=== PATIENT | female | born 1965 | race Caucasian/White ===

== ENCOUNTER 2017-04-07 10:31 | Inpatient (IN) | payer OTHER ==
[~2017-04-07] VITALS: Ht 162.6 cm; Wt 41.5 kg
[~2017-04-07 10:31] MED LIST: ALPR0.5T3 PO; BUSP5 PO; CALA180T PO; CETI10 PO; DIGO0.25 PO; GEMF600T PO; HYDR0.1S8 PO; LANS30 PO; MONT10TA2 PO; PROM25TA5 PO
[2017-04-07 10:33] VITALS: BP 99/56; PULSE 89; RESP 18; TEMP 98.3; O2SAT 100
--- NOTE | 2017-04-07 11:27 | PD ---
HPI . 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 Apparently last Friday patient says her medications were changed and that she's been feeling lightheaded and dizzy since. reports that he found her on the floor and states she been there for approximately 4-5 hours. She has a bruise to her chin and tells me that she hit her chin, but denies any head injury or loss of consciousness. Patient says that she is extremely weak and lost her balance. Her baseline level of functioning seems to be that requiring assistance to ambulate, but says she is usually able to walk around very slowly holding onto things in her home. She's been having trouble with her balance for the past several months, but has not been able to get into her primary care provider. She does have an upcoming with her primary care provider who practices out of [place] on this . Her main reason for coming to the emergency department is that she is weak, dizzy and can't really walk without total assistance. She does report having a dry cough, but blames it on postnasal drip. She denies any fever or chills. She has no other complaints. PFSH Past Medical History Cancer: No Cardiovascular Problems: Yes (ELEVATED HEARTRATE) Endocrine: No Genitourinary: No Hepatitis: No Hiatal Hernia: Yes Immune Disorder: No Musculoskeletal: Yes (ARTHRITIS LUMBAR) Neurologic: No Psychiatric: Yes (PANIC ATTACKS) Reproductive: No Respiratory: Yes (ASTHMA,COPD) ?: Not Past Surgical History Abdominal Surgery: No Body Medical Devices: NONE Cardiac Surgery: No Ear Surgery: No Endocrine Surgery: No Eye Surgery: No Genitourinary Surgery: No Gynecologic Surgery: Yes (LAPROSCOPIC SURGERY FOR ENDOMETRIOSIS X3) Oral Surgery: Yes (TONSILLECTOMY) Thoracic Surgery: No Social History Tobacco Use: Yes Substance Use: No Allergies-Medications (Allergen,Severity, Reaction): Coded Allergies: Adhesives (Verified Allergy, Unknown, PAPER TAPE OK TO USE, 02/06/16) Carisoprodol (Verified Adverse Reaction, Severe, ACID REFLUX, 02/06/16) HMG-CoA Reductase Inhibitors (Verified Adverse Reaction, Severe, MUSCLE WEAKNESS, 02/06/16) Medrol (Verified Adverse Reaction, Severe, GERD, 02/06/16) Paxil (Verified Adverse Reaction, Severe, 02/06/16) Prilosec (Verified Adverse Reaction, Severe, CHEST PAIN, 02/06/16) Hydrochlorothiazide (Verified Adverse Reaction, Unknown, HEART ISSUES, ) Losartan (Verified Adverse Reaction, Unknown, HEART PROBLEMS, 02/06/16) Triamterene (Verified Adverse Reaction, Unknown, UNKNOWN, 02/06/16) Reported Meds & Prescriptions Reported Meds & Active Scripts Active Reported Zyrtec (Cetirizine HCl) 10 Mg Capsule Buspirone (Buspirone HCl) 5 Mg Tab 5 Mg PO BID Alprazolam 0.5 Mg Tab 0.5 Mg PO Q6H PRN Review of Systems General / Constitutional: No: Fever Eyes: No: Visual changes HENT: No: Headaches Cardiovascular: No: Chest Pain or Discomfort Respiratory: No: Shortness of Breath Gastrointestinal: No: Abdominal Pain Genitourinary: No: Dysuria Musculoskeletal: No: Pain Skin: No Rash Neurologic: Positive: Weakness, Dizziness, Ataxia Psychiatric: No: Depression Endocrine: No: Polydipsia Hematologic/Lymphatic: No: Easy Bruising Physical Exam Narrative GENERAL: AAO x 3, lethargic SKIN: Warm and dry. ecchymosis to nose (Clearing) and chin HEAD: Normocephalic and atraumatic. EYES: No scleral icterus. No injection or drainage. EOM intact, PERRLA ENT: No nasal drainage noted. Mucous membranes pink. Airway patent. TM normal b/ l NECK: Supple, trachea midline. No JVD. no lymphadenopathy, nontender CARDIOVASCULAR: Regular rate and rhythm without murmurs, gallops, or rubs. RESPIRATORY: diminished bilaterally, no rhonchi or wheezing, GASTROINTESTINAL: Abdomen soft, non-tender, nondistended. no rebound or guarding EXTREMITIES: No cyanosis or edema. posterior tibial pulses normal BACK: No obvious deformity. No CVA tenderness. 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, UE and LE 5/5, no focal deficits, but patient visibly weak on exam PSYCH: AAO x 3, flat affect Data Data Last Documented VS Vital Signs Date Time Temp Pulse Resp B/P Pulse Ox O2 Delivery O2 Flow Rate FiO2 04/07/17 13:48 76 16 125/74 100 Room Air 04/07/17 10:33 98.3 Orders Complete Blood Count With Diff (04/07/17 11:36) Comprehensive Metabolic Panel (04/07/17 11:36) Prothrombin Time / Inr (Pt) (04/07/17 11:36) Act Partial Throm Time (Ptt) (04/07/17 11:36) Ct Brain W/O Iv Contrast(Rout) (04/07/17 11:36) Ecg Monitoring (04/07/17 11:36) Iv Access Insert/Monitor (04/07/17 11:36) Oximetry (04/07/17 11:36) Sodium Chloride 0.9% Flush (Ns Flush) (04/07/17 11:45) Urinalysis - C+S If Indicated (04/07/17 11:36) Chest, Single Ap (04/07/17 ) Electrocardiogram (04/07/17 ) Cath For Specimen (04/07/17 12:50) Drug Screen, Random Urine (04/07/17 12:50) Sodium Chlor 0.9% 1000 Ml Inj (Ns 1000 M (04/07/17 13:15) Potassium Chloride (Kcl) (04/07/17 13:15) Sodium, Random Urine (04/07/17 14:58) Osmolality, Urine (04/07/17 14:58) Specimen To Be Collected PRN (04/07/17 14:58) Osmolality,Serum (04/07/17 14:58) Chloride, Random Urine (04/07/17 14:58) Admit To Inpatient (04/07/17 ) Code Status (04/07/17 14:59) Vital Signs (Adult) Q4H (04/07/17 14:59) Activity Oob With Assistance (04/07/17 14:59) Oil Rig Driller / Telemetry .CONTINUOUS (04/07/17 14:59) Diet Regular Basic (04/07/17 Dinner) Sodium Chloride 0.9% Flush (Ns Flush) (04/07/17 15:00) Sodium Chloride 0.9% Flush (Ns Flush) (04/07/17 21:00) Acetaminophen (Tylenol) (04/07/17 15:00) Ondansetron Inj (Zofran Inj) (04/07/17 15:00) Temazepam (Restoril) (04/07/17 15:00) Basic Metabolic Panel (Bmp) (04/08/17 06:00) Complete Blood Count With Diff (04/08/17 06:00) Electrocardiogram (04/07/17 14:59) Pt Request For Service (04/07/17 14:59) Scd Bilateral/Knee High MARTELL.BID (04/07/17 14:59) Naloxone Inj (Narcan Inj) (04/07/17 15:00) Magnesium Hydroxide Liq (Milk Of Magnesi (04/07/17 15:00) Inpatient Certification (04/07/17 ) Thyroid Stimulating Hormone (04/07/17 15:01) Free Thyroxine (T4) (04/07/17 15:01) Rapid Plasma Regin (Rpr) W Ttr (04/07/17 15:01) Vitamin B12 (04/07/17 15:01) Folate, Serum (04/07/17 15:01) Ammonia (04/07/17 15:01) Ns + Kcl 20 Meq Inj (Ns + Kcl 20 Meq Inj (04/07/17 15:15) Basic Metabolic Panel (Bmp) (04/07/17 15:05) Admit Order (Ed Use Only) (04/07/17 15:06) Labs Laboratory Tests Test 04/07/17 04/07/17 11:45 13:40 White Blood Count 13.3 TH/MM3 Red Blood Count 4.31 MIL/MM3 Hemoglobin 13.7 GM/DL Hematocrit 39.4 % Mean Corpuscular Volume 91.5 FL Mean Corpuscular Hemoglobin 31.7 PG Mean Corpuscular Hemoglobin 34.7 % Concent Red Cell Distribution Width 15.9 % Platelet Count 122 TH/MM3 Mean Platelet Volume 8.9 FL Neutrophils (%) (Auto) 90.7 % Lymphocytes (%) (Auto) 3.8 % Monocytes (%) (Auto) 5.3 % Eosinophils (%) (Auto) 0.0 % Basophils (%) (Auto) 0.2 % Neutrophils # (Auto) 12.1 TH/MM3 Lymphocytes # (Auto) 0.5 TH/MM3 Monocytes # (Auto) 0.7 TH/MM3 Eosinophils # (Auto) 0.0 TH/MM3 Basophils # (Auto) 0.0 TH/MM3 CBC Comment DIFF FINAL Differential Comment Prothrombin Time 10.4 SEC Prothromb Time International 0.9 RATIO Ratio Activated Partial 31.2 SEC Thromboplast Time Sodium Level 124 MEQ/L Potassium Level 2.8 MEQ/L Chloride Level 85 MEQ/L Carbon Dioxide Level 27.3 MEQ/L Anion Gap 12 MEQ/L Blood Urea Nitrogen 4 MG/DL Creatinine 0.57 MG/DL Estimat Glomerular Filtration 111 ML/MIN Rate Random Glucose 92 MG/DL Calcium Level 8.8 MG/DL Total Bilirubin 1.4 MG/DL Aspartate Amino Transf 149 U/L (AST/SGOT) Alanine Aminotransferase 83 U/L (ALT/SGPT) Alkaline Phosphatase 150 U/L Total Protein 7.7 GM/DL Albumin 2.9 GM/DL Urine Color YELLOW Urine Turbidity CLEAR Urine pH 7.0 Urine Specific [place] 1.004 Urine Protein NEG mg/dL Urine Glucose (UA) NEG mg/dL Urine Ketones NEG mg/dL Urine Occult Blood NEG Urine Nitrite NEG Urine Bilirubin NEG Urine Urobilinogen LESS THAN 2.0 MG/DL Urine Leukocyte Esterase NEG Urine RBC LESS THAN 1 /hpf Microscopic Urinalysis Comment CATH-CULT NOT IND MDM Medical Decision Making Medical Screen Exam Complete: Yes Emergency Medical Condition: Yes Medical Record Reviewed: Yes Differential Diagnosis medication reaction, UTI, less likely sepsis, TIA, CVA, Narrative Course 51 yr old female here with c/o weakness/dizziness and falling. I have ordered labs, CXR, and CT of the brain. Labs called with critical K+ and NA+: I discussed with my attending Dr. Capone , who recommends 1L NS and Potassium. She will need to be admitted for her hyponatremia and hypokalemia. Last Impressions Head CT 04/07/17 1136 Signed Impressions: Service Date/Time: Friday, April 07, 2017 13:12 - CONCLUSION: 1. No acute intracranial abnormality. Alfredo Molina MD Chest X-Ray 04/07/17 0000 Signed Impressions: Service Date/Time: Friday, April 07, 2017 12:36 - CONCLUSION: No acute cardiopulmonary abnormality is identified. Ephraim Chavez MD Laboratory Tests Test 04/07/17 04/07/17 11:45 13:40 White Blood Count 13.3 TH/MM3 Red Blood Count 4.31 MIL/MM3 Hemoglobin 13.7 GM/DL Hematocrit 39.4 % Mean Corpuscular Volume 91.5 FL Mean Corpuscular Hemoglobin 31.7 PG Mean Corpuscular Hemoglobin 34.7 % Concent Red Cell Distribution Width 15.9 % Platelet Count 122 TH/MM3 Mean Platelet Volume 8.9 FL Neutrophils (%) (Auto) 90.7 % Lymphocytes (%) (Auto) 3.8 % Monocytes (%) (Auto) 5.3 % Eosinophils (%) (Auto) 0.0 % Basophils (%) (Auto) 0.2 % Neutrophils # (Auto) 12.1 TH/MM3 Lymphocytes # (Auto) 0.5 TH/MM3 Monocytes # (Auto) 0.7 TH/MM3 Eosinophils # (Auto) 0.0 TH/MM3 Basophils # (Auto) 0.0 TH/MM3 CBC Comment DIFF FINAL Differential Comment Prothrombin Time 10.4 SEC Prothromb Time International 0.9 RATIO Ratio Activated Partial 31.2 SEC Thromboplast Time Sodium Level 124 MEQ/L Potassium Level 2.8 MEQ/L Chloride Level 85 MEQ/L Carbon Dioxide Level 27.3 MEQ/L Anion Gap 12 MEQ/L Blood Urea Nitrogen 4 MG/DL Creatinine 0.57 MG/DL Estimat Glomerular Filtration 111 ML/MIN Rate Random Glucose 92 MG/DL Calcium Level 8.8 MG/DL Total Bilirubin 1.4 MG/DL Aspartate Amino Transf 149 U/L (AST/SGOT) Alanine Aminotransferase 83 U/L (ALT/SGPT) Alkaline Phosphatase 150 U/L Total Protein 7.7 GM/DL Albumin 2.9 GM/DL Urine Color YELLOW Urine Turbidity CLEAR Urine pH 7.0 Urine Specific [place] 1.004 Urine Protein NEG mg/dL Urine Glucose (UA) NEG mg/dL Urine Ketones NEG mg/dL Urine Occult Blood NEG Urine Nitrite NEG Urine Bilirubin NEG Urine Urobilinogen LESS THAN 2.0 MG/DL Urine Leukocyte Esterase NEG Urine RBC LESS THAN 1 /hpf Microscopic Urinalysis Comment CATH-CULT NOT IND Case discussed with my attending Dr. Capone. We verified meds with pharmacy. There was no med change. Patient also has elevated WBC without clear source. CXR and UA normal. She has slightly elevated LFTs. 1505: Discussed with Dr. Kirkland. He will resume care of this patient. Diagnosis Primary Impression: Hyponatremia Admitting Information Admitting Physician Requests: Admit Condition: Stable Rani Palomo Apr 07, 2017 11:26
[2017-04-07 11:39] VITALS: O2SAT 100
[2017-04-07] MEDS ORDERED: GEMF600T PO (11:44)
[2017-04-07] MEDS ORDERED: PROM25TA10 PO (11:44)
[2017-04-07] MEDS ORDERED: ALPR0.5T3 PO (11:44)
[2017-04-07] MEDS ORDERED: VERA180C PO (11:44)
[2017-04-07] MEDS ORDERED: MONT10TA2 PO (11:44)
[2017-04-07] MEDS ORDERED: DIGO0.25 PO (11:44)
[2017-04-07] MEDS ORDERED: HYDR0.1S8 PO (11:44)
[2017-04-07] MEDS ORDERED: CETI10CA3 (11:44)
[2017-04-07] MEDS ORDERED: LANS30CA PO (11:44)
[2017-04-07] MEDS ORDERED: BUSP5TAB PO (11:44)
[2017-04-07] MEDS ORDERED: SODIUM CHLORIDE 0.9% FLUSH 10 ML FLUSH IVF PRN (11:45)
[2017-04-07 12:01] LABS: AUTOMATED NEUTROPHIL # 12.1 TH/MM3 (1.8-7.7); BASOPHIL % 0.2 % (0.0-2.0); HEMATOCRIT 39.4 % (35.0-46.0); HEMO FLAGS DIFF FINAL; LYMPH % 3.8 % (9.0-44.0); LYMPHOCYTE # 0.5 TH/MM3 (1.0-4.8); MEAN CELL VOLUME 91.5 FL (80.0-100.0); MEAN CORPUSCULAR HEMOGLOBIN 31.7 PG (27.0-34.0); MEAN CORPUSCULAR HGB CONC 34.7 % (32.0-36.0); MONO % 5.3 % (0.0-8.0); NEUT % 90.7 % (16.0-70.0); PLATELET COUNT 122 TH/MM3 (150-450); RED BLOOD COUNT 4.31 MIL/MM3 (4.00-5.30); RED CELL DISTRIBUTION WIDTH 15.9 % (11.6-17.2); WHITE BLOOD COUNT 13.3 TH/MM3 (4.0-11.0)
[2017-04-07 12:11] LABS: APTT (PATIENT) 31.2 SEC (24.3-30.1); INTERNATIONAL NORMALIZED RATIO 0.9 RATIO; PROTHROMBIN TIME - PATIENT 10.4 SEC (9.8-11.6)
[2017-04-07 12:55] LABS: ALKALINE PHOSPHATASE 150 U/L (45-117); ALT (GPT) 83 U/L (10-53); ANION GAP 12 MEQ/L (5-15); AST (GOT) 149 U/L (15-37); BICARBONATE 27.3 MEQ/L (21.0-32.0); CHLORIDE 85 MEQ/L (98-107); GLOMERULAR FILTRATION RATE 111 ML/MIN (>89); TOTAL BILIRUBIN ADULT 1.4 MG/DL (0.2-1.0)
[2017-04-07 13:01] LABS: BLOOD UREA NITROGEN 4 MG/DL (7-18)
[2017-04-07 13:04] LABS: POTASSIUM 2.8 MEQ/L (3.5-5.1); SODIUM (NA) 124 MEQ/L (136-145)
[2017-04-07] MEDS ORDERED: POTASSIUM CHLORIDE 20 MEQ CONTROLLED RELEASE TAB PO ONE (13:15)
[2017-04-07] MEDS ORDERED: SODIUM CHLOR 0.9% 1000 ML INJ 1,000 ML IV ONE (13:15)
--- NOTE | 2017-04-07 13:21 | RADRPT ---
EXAM DATE/TIME: 04/07/2017 12:36 [facility] COMPARISON: No previous studies available for comparison. INDICATIONS : Cough. MEDICAL HISTORY : None. SURGICAL HISTORY : Breast augmentation. ENCOUNTER: Initial ACUITY: 4 - 6 days PAIN SCORE: 0/10 LOCATION: Bilateral chest FINDINGS: Portable AP view of the chest demonstrates a normal-sized cardiac silhouette. No effusion, consolidat ion, or pneumothorax is visualized. The bones and soft tissues demonstrate no acute abnormality. Bila teral breast implants are present with calcified capsules. CONCLUSION: No acute cardiopulmonary abnormality is identified. Ephraim Chavez MD on April 07, 2017 at 13:19 Board Certified Radiologist. This report was verified electronically.
[2017-04-07 13:48] VITALS: BP 125/74; PULSE 76; RESP 16; O2SAT 100
[2017-04-07 14:06] LABS: BLOOD, URINE NEG (NEG); GLUCOSE,URINE NEG (NEG); KETONE, URINE NEG (NEG); NITRITE,URINE NEG (NEG); URINE COLOR YELLOW (YELLW/STRAW)
--- NOTE | 2017-04-07 14:08 | RADRPT ---
EXAM DATE/TIME: 04/07/2017 13:12 [facility] COMPARISON: No previous studies available for comparison. INDICATIONS : Dizzy, fell Friday hit chin and nose, bruising chin area. RADIATION DOSE: 26.58 CTDIvol (mGy) MEDICAL HISTORY : Chronic obstructive pulmonary disease. Gastric tumor,elavated heart rate SURGICAL HISTORY : None. ENCOUNTER: Initial ACUITY: 3 days PAIN SCALE: 6/10 LOCATION: cranial TECHNIQUE: Multiple contiguous axial images were obtained of the head. Using automated exposure control and adj ustment of the mA and/or kV according to patient size, radiation dose was kept as low as reasonably a chievable to obtain optimal diagnostic quality images. DICOM format image data is available electro nically for review and comparison. FINDINGS: CEREBRUM: The ventricles are normal for age. No evidence of midline shift, mass lesion, hemorrhage or acute in farction. No extra-axial fluid collections are seen. POSTERIOR FOSSA: The cerebellum and brainstem are intact. The 4th ventricle is midline. The cerebellopontine angle i s unremarkable. EXTRACRANIAL: The visualized portion of the orbits is intact. SKULL: The calvaria is intact. No evidence of skull fracture. CONCLUSION: 1. No acute intracranial abnormality. Alfredo Molina MD on April 07, 2017 at 13:51 Board Certified Radiologist. This report was verified electronically.
[2017-04-07 14:26] LABS: COMMENT (UR) CATH-CULT NOT IND; CULTURE IF INDICATED CATH CULTURE NOT IND
[2017-04-07 15:00] VITALS: BP 113/66; PULSE 78; RESP 16; O2SAT 100
[2017-04-07] MEDS ORDERED: ACETAMINOPHEN 325 MG TAB PO PRN (15:00)
[2017-04-07] MEDS ORDERED: SODIUM CHLORIDE 0.9% FLUSH 10 ML FLUSH IV FLUSH PRN (15:00)
[2017-04-07] MEDS ORDERED: MAGNESIUM HYDROXIDE SUSP 30 ML CUP PO PRN (15:00)
[2017-04-07] MEDS ORDERED: NALOXONE HCL 0.4 MG/ML AMP IV PRN (15:00)
[2017-04-07] MEDS: NS + KCL 20 MEQ INJ 1,000 ML IV SCH ×2 (15:27→23:20)
--- NOTE | 2017-04-07 16:02 | HHI.HP ---
HPI Service [facility] Hospitalists Primary Care Physician Constance Stevens M.D. Admission Diagnosis Hypokalemia/Hyponatremia Chief Complaint: Weakness, shakiness Travel History International Travel<30 Days: No Contact w/Intl Traveler <30 Da: No Traveled to Known Affected Are: No History of Present Illness Ms. Verdugo is a 51 y/o female with hx of GIST tumor that was resected in January 2016, hypertension, asthma, hypothyroidism, and migraine headaches who presented to the ED at [facility] on 04/07/17 with complaints of increased weakness, nausea and dizziness. She reports that the nausea has been an issue for the last few weeks along with this tremulousness mostly in the upper extremities. Her reports that in the last several months the patient has fallen at home several times. Typically she is able to get up off the ground by herself but the last time she fell which was last Friday (04/04/17), she was unable to get up off the ground by herself and was there for approximately 4-5 hours. She has a bruise on her chin and reports that she hit her chin when she fell, but denies any head injury or loss of consciousness. Of note, the pt states that since her stomach surgery last year she has been on Reglan which she stopped about a week ago and she feels that her shakiness has been worse since stopping the medication. Pt has not been eating much over the last few weeks due to increased nausea. She does drink alcohol daily, 2-3 beers, and her last alcoholic beverage was last , 04/03/17. Her baseline level of functioning seems to be that requiring assistance to ambulate, but says she is usually able to walk around very slowly holding onto things in her home. She's been having worsening trouble with her balance for the past several months, but in the last few days this seems to be worse. Pts labs at admission revealed significant electrolyte abnormalities with Na+ 124, K+ 2.8. Her LFTs are elevated with TBili 1.4, AST 149, ALT 83, AlkPhos 150. Pts platelet count is also decreased to 122. Review of Systems Constitutional: COMPLAINS OF: Change in appetite, DENIES: Fever, Chills Eyes: DENIES: Vision loss Ears, nose, mouth, throat: DENIES: Hearing loss Respiratory: DENIES: Cough, Shortness of breath Cardiovascular: DENIES: Chest pain, Lower Extremity Edema Gastrointestinal: COMPLAINS OF: Nausea, Anorexia, DENIES: Abdominal pain, Vomiting Genitourinary: DENIES: Urgency, Hematuria Musculoskeletal: DENIES: Joint pain, Neck pain Integumentary: DENIES: Rash Hematologic/lymphatic: COMPLAINS OF: Bruising Neurologic: COMPLAINS OF: Localized weakness, Tremor, Poor Balance, DENIES: Headache, Seizures Psychiatric: DENIES: Confusion Past Family Social History Past Medical History GIST diagnosed in 2016 Perforated stomach in 2016 Asthma GERD HTN Hyperlipidemia Hypothyroidism Panic attacks Past Surgical History EUS with FNA (12/22/15)----> isoechoic mass probably from the fourth layer mildly heterogenic. Pathology with spindle cells with immunohistochemical features of a gastrointestinal stromal tumor (GIST). EGD with submucosal injection and dissection and clipping (02/06/16)----> In the stomach there was a large GIST in between the anterior wall and the large curve close to the antrum, dissection was made into the submucosa Laparoscopic partial gastrectomy for perforated stomach (04/08/16) with Dr. Childers Laparoscopy for endometriosis x 3 Tonsillectomy Reported Medications -Zyrtec 10 Mg DONNA DAILY --Buspirone 5 Mg PO BID (?10mg TID) -Alprazolam 0.5 Mg PO Q6H PRN -[id number] PO DAILY, reportedly takes this because the Verapamil elevates her HR -Verapamil 180MG PO BID Allergies: Coded Allergies: Adhesives (Verified Allergy, Unknown, PAPER TAPE OK TO USE, 02/06/16) Carisoprodol (Verified Adverse Reaction, Severe, ACID REFLUX, 02/06/16) HMG-CoA Reductase Inhibitors (Verified Adverse Reaction, Severe, MUSCLE WEAKNESS, 02/06/16) Medrol (Verified Adverse Reaction, Severe, GERD, 02/06/16) Paxil (Verified Adverse Reaction, Severe, 02/06/16) Prilosec (Verified Adverse Reaction, Severe, CHEST PAIN, 02/06/16) Hydrochlorothiazide (Verified Adverse Reaction, Unknown, HEART ISSUES, ) Losartan (Verified Adverse Reaction, Unknown, HEART PROBLEMS, 02/06/16) Triamterene (Verified Adverse Reaction, Unknown, UNKNOWN, 02/06/16) Family History Noncontributory Social History (+)Alcohol use, drinks 2-3 beers per day (+)Tobacco use, smokes daily Denies any illicit drug use Physical Exam Vital Signs Vital Signs Date Time Temp Pulse Resp B/P Pulse Ox O2 Delivery O2 Flow Rate FiO2 04/07/17 15:00 78 16 113/66 100 Room Air 04/07/17 13:48 76 16 125/74 100 Room Air 04/07/17 11:39 100 Room Air 04/07/17 11:37 79 20 100 Room Air 04/07/17 10:33 98.3 89 18 99/56 100 Room Air Physical Exam GENERAL: Thin female appears older than her stated age, in no apparent distress. HEENT: Atraumatic. Normocephalic. No temporal or scalp tenderness. No scleral icterus. Airway patent. Ecchymosis on her chin NECK: Trachea midline, supple, nontender. CARDIO: Regular RESP: CTA bilaterally. No wheezes, rales, or rhonchi. ABD: +BS, soft, non-tender, nondistended. EXT: Extremities without clubbing, cyanosis, or edema. NEURO: Awake and alert. Pt is very tremulous in both hands. Normal speech. Laboratory Laboratory Tests Test 04/07/17 04/07/17 11:45 13:40 White Blood Count 13.3 Red Blood Count 4.31 Hemoglobin 13.7 Hematocrit 39.4 Mean Corpuscular Volume 91.5 Mean Corpuscular Hemoglobin 31.7 Mean Corpuscular Hemoglobin 34.7 Concent Red Cell Distribution Width 15.9 Platelet Count 122 Mean Platelet Volume 8.9 Neutrophils (%) (Auto) 90.7 Lymphocytes (%) (Auto) 3.8 Monocytes (%) (Auto) 5.3 Eosinophils (%) (Auto) 0.0 Basophils (%) (Auto) 0.2 Neutrophils # (Auto) 12.1 Lymphocytes # (Auto) 0.5 Monocytes # (Auto) 0.7 Eosinophils # (Auto) 0.0 Basophils # (Auto) 0.0 CBC Comment DIFF FINAL Differential Comment Prothrombin Time 10.4 Prothromb Time International 0.9 Ratio Activated Partial 31.2 Thromboplast Time Sodium Level 124 Potassium Level 2.8 Chloride Level 85 Carbon Dioxide Level 27.3 Anion Gap 12 Blood Urea Nitrogen 4 Creatinine 0.57 Estimat Glomerular Filtration 111 Rate Random Glucose 92 Calcium Level 8.8 Total Bilirubin 1.4 Aspartate Amino Transf 149 (AST/SGOT) Alanine Aminotransferase 83 (ALT/SGPT) Alkaline Phosphatase 150 Total Protein 7.7 Albumin 2.9 Urine Color YELLOW Urine Turbidity CLEAR Urine pH 7.0 Urine Specific [place] 1.004 Urine Protein NEG Urine Glucose (UA) NEG Urine Ketones NEG Urine Occult Blood NEG Urine Nitrite NEG Urine Bilirubin NEG Urine Urobilinogen LESS THAN 2.0 Urine Leukocyte Esterase NEG Urine RBC LESS THAN 1 Microscopic Urinalysis Comment CATH-CULT NOT IND Result Diagram: 04/07/17 1145 04/07/17 1145 Imaging Last Impressions Head CT 04/07/17 1136 Signed Impressions: Service Date/Time: Friday, April 07, 2017 13:12 - CONCLUSION: 1. No acute intracranial abnormality. Alfredo Molina MD Chest X-Ray 04/07/17 0000 Signed Impressions: Service Date/Time: Friday, April 07, 2017 12:36 - CONCLUSION: No acute cardiopulmonary abnormality is identified. Ephraim Chavez MD Septic Shock Reassessment Heart: Regular rate and rhythm Lungs: Clear Skin: Warm Assessment and Plan Problem List: (1) Weakness Status: Acute Plan: - Pt is a 51 y/o female with hx of GIST, HTN, Anxiety and alcohol abuse. - She presented to the ED at [facility] on 04/07/17 with increased weakness, nausea, and tremors. - She has reportedly had progressively worsening generalized weakness for several months. This has been worse in the last few days. Pt has fallen at home several times in the last few months but the last time she fall on 04/04/17 she was unable to get herself up off the floor. - She has had significant nausea and poor appetite for several weeks. - Pt drinks alcohol daily (2-3 beers per day) but has not had any alcohol intake since 04/03/17 - Pt stopped her Reglan, which she had been on for several months, about 1 week ago - Head CT in the ED was negative for acute changes. - She has significant electrolyte abnormalities with hyponatremia and hypokalemia. - Pt has received oral potassium and is on IVF with NS with KCl. - Recheck labs this evening. - Pts acute worsening of her symptoms may be related to alcohol withdrawal so she will be started on Scheduled Librium 7.5mg TID and Ativan PRN - Check Digoxin level, TSH/Free T4, Vitamin B12, Folate, Ammonia, and RPR - Given MVI/Thiamine/Folate - Alcohol withdrawal precautions - security monitor - Check labs to r/o SIADH - PT evaluation - Monitor labs closely - Supportive care (2) Hyponatremia Status: Acute Plan: - See above. (3) Hypokalemia Status: Acute Plan: - See above. (4) Alcohol abuse Status: Acute Plan: - See above. (5) HTN (hypertension) Status: Chronic Plan: - Pts BP and HR are stable - We will hold on resuming these meds for now - Checking Digoxin level (6) Asthma Status: Chronic Plan: - Cont. Singulair - Duonebs PRN (7) Anxiety Status: Chronic Plan: - Home meds continued (8) History of gastrointestinal stromal tumor (GIST) Status: Resolved Assessment and Plan Patient examined. Assessment and plan formulated with Zayda Lay PA-C. I agree with the above. Physician Certification 2 Midnight Certification Type: Admission for Inpatient Services Order for Inpatient Services The services are ordered in accordance with Medicare regulations or non- Medicare payer requirements, as applicable. In the case of services not specified as inpatient-only, they are appropriately provided as inpatient services in accordance with the 2-midnight benchmark. Estimated LOS (days): 3 3 days is the estimated time the patient will need to remain in the hospital, assuming treatment plan goals are met and no additional complications. Post-Hospital Plan: Not yet determined Zayda Lay Apr 07, 2017 16:02 Tyson Kirkland DO Apr 08, 2017 14:27
[2017-04-07] MEDS ORDERED: LORazepam 1 MG TAB PO PRN (18:00)
--- NOTE | 2017-04-07 18:54 | EKG ---
Date Performed: 04/07/2017 Time Performed: 12:01:45 PTAGE: 51 years EKG: Sinus rhythm BORDERLINE RIGHT AXIS DEVIATION PROLONGED QT INTERVAL ABNORMAL ECG Compared to the PREVIOUS TRACING QT interval has lengthened. PREVIOUS TRACIN02/06/2016 12.14 DOCTOR: Eliseo Hernandez Interpretating Date/Time 04/07/2017 18:54:13
[2017-04-07] MEDS ORDERED: RESP: ALBUTEROL 2.5 MG/IPRATROPIUM 0.5 MG NEB (PRN) NEB (19:00)
[2017-04-07 20:30] VITALS: BP 124/73; PULSE 84; RESP 17; TEMP 100.1; O2SAT 96
[2017-04-07] MEDS: TEMAZEPAM 15 MG CAP PO PRN (23:21)
[2017-04-07] MEDS: MONTELUKAST SODIUM 10 MG TAB PO SCH (23:21)
[2017-04-07] MEDS: busPIRone HCL 5 MG TAB PO SCH (23:21)
[2017-04-07] MEDS: SODIUM CHLORIDE 0.9% FLUSH 10 ML FLUSH IV FLUSH SCH (23:21)
[2017-04-07 23:46] LABS: ACETAMINOPHEN LESS THAN 2.0 MCG/ML (10.0-30.0); ANION GAP 8 MEQ/L (5-15); BICARBONATE 25.9 MEQ/L (21.0-32.0); BLOOD UREA NITROGEN 4 MG/DL (7-18); CHLORIDE 102 MEQ/L (98-107); DIGOXIN 0.8 NG/ML (0.8-2.0); FREE T4 1.46 NG/DL (0.76-1.46); GLOMERULAR FILTRATION RATE 158 ML/MIN (>89); SODIUM (NA) 136 MEQ/L (136-145)
[2017-04-08] VITALS (7 sets, daily range): BP systolic 110–158; BP diastolic 60–80; PULSE 75–98; RESP 16–19; TEMP 98.6–99.9; O2SAT 94–99
[2017-04-08] MEDS: GEMFIBROZIL 600 MG TAB PO SCH ×2 (06:51→16:00)
[2017-04-08] MEDS: NS + KCL 20 MEQ INJ 1,000 ML IV SCH ×2 (08:08→23:22)
[2017-04-08] MEDS: FOLIC ACID 1 MG TAB PO SCH ×3 (09:15→16:07)
[2017-04-08] MEDS: MULTIVITAMIN TAB PO SCH (09:15)
[2017-04-08] MEDS: SODIUM CHLORIDE 0.9% FLUSH 10 ML FLUSH IV FLUSH SCH ×2 (09:15→20:51)
[2017-04-08] MEDS: THIAMINE HCL 100 MG TAB PO SCH (09:15)
[2017-04-08] MEDS: PANTOPRAZOLE SOD 40 MG DELAYED RELEASE TAB PO SCH (09:15)
[2017-04-08] MEDS: busPIRone HCL 5 MG TAB PO SCH ×2 (09:15→20:51)
[2017-04-08] MEDS ORDERED: I COOL PO PRN (10:00)
[2017-04-08] MEDS ORDERED: DIGOXIN 0.25 MG TAB PO SCH (10:15)
[2017-04-08] MEDS ORDERED: FLUMAZENIL 0.5 MG/5 ML VIAL IV PUSH PRN (11:30)
[2017-04-08] MEDS ORDERED: LORazepam 2 MG TAB PO PRN (11:30)
[2017-04-08] MEDS ORDERED: LORazepam 2 MG/ML VIAL IV PUSH PRN ×4 (11:30)
[2017-04-08] MEDS ORDERED: LORazepam 1 MG TAB PO PRN ×2 (11:30→15:30)
[2017-04-08] MEDS: VERAPAMIL HCL 180 MG SUSTAINED RELEASE TAB PO SCH (12:07)
[2017-04-08] MEDS: ACETAMINOPHEN 325 MG TAB PO PRN ×2 (12:09→23:18)
[2017-04-08 12:39] LABS: BASOPHIL % 0.1 % (0.0-2.0); EOSINOPHIL % 0.1 % (0.0-4.0); HEMATOCRIT 35.6 % (35.0-46.0); HEMO FLAGS DIFF FINAL; LYMPH % 5.2 % (9.0-44.0); LYMPHOCYTE # 0.6 TH/MM3 (1.0-4.8); MEAN CELL VOLUME 92.5 FL (80.0-100.0); MEAN CORPUSCULAR HEMOGLOBIN 31.4 PG (27.0-34.0); MEAN CORPUSCULAR HGB CONC 33.9 % (32.0-36.0); MONO % 8.7 % (0.0-8.0); NEUT % 85.9 % (16.0-70.0); PLATELET COUNT 135 TH/MM3 (150-450); RED BLOOD COUNT 3.84 MIL/MM3 (4.00-5.30); RED CELL DISTRIBUTION WIDTH 15.7 % (11.6-17.2); WHITE BLOOD COUNT 11.7 TH/MM3 (4.0-11.0)
[2017-04-08 13:15] LABS: BICARBONATE 22.8 MEQ/L (21.0-32.0); POTASSIUM 3.3 MEQ/L (3.5-5.1)
[2017-04-08 13:18] LABS: INDIRECT BILIRUBIN 0.7 MG/DL (0.0-0.8); TOTAL BILIRUBIN ADULT 1.3 MG/DL (0.2-1.0)
[2017-04-08] MEDS ORDERED: THIAMINE HCL 100 MG TAB PO SCH (14:45)
[2017-04-08] MEDS ORDERED: MULTIVITAMIN TAB PO SCH (14:45)
--- NOTE | 2017-04-08 14:47 | HHI.PR ---
Subjective Remarks No new complaints. Objective Vitals Vital Signs Date Time Temp Pulse Resp B/P Pulse Ox O2 Delivery O2 Flow Rate FiO2 04/08/17 13:30 18 04/08/17 12:28 99.0 86 18 133/75 99 04/08/17 08:19 99.6 78 18 158/80 99 04/08/17 06:10 99.7 93 19 145/78 94 04/08/17 02:51 75 04/08/17 00:30 99.9 80 17 120/67 95 04/07/17 20:30 100.1 84 17 124/73 96 04/07/17 15:00 78 16 113/66 100 Room Air 04/07/17 04/07/17 04/08/17 15:00 23:00 07:00 Intake Total 400 ml 900 ml Balance 400 ml 900 ml Intake Oral 400 ml 900 ml # Voids 1 3 # Bowel Movements 0 0 Result Diagram: 04/08/17 1109 04/08/17 1109 Imaging Last Impressions Head CT 04/07/17 1136 Signed Impressions: Service Date/Time: Friday, April 07, 2017 13:12 - CONCLUSION: 1. No acute intracranial abnormality. Alfredo Molina MD Chest X-Ray 04/07/17 0000 Signed Impressions: Service Date/Time: Friday, April 07, 2017 12:36 - CONCLUSION: No acute cardiopulmonary abnormality is identified. Ephraim Chavez MD Objective Remarks GENERAL: This is a well-nourished, well-developed patient, in no apparent distress. CARDIOVASCULAR: Regular rate and rhythm without murmurs, gallops, or rubs. RESPIRATORY: Clear to auscultation. Breath sounds equal bilaterally. No wheezes , rales, or rhonchi. GASTROINTESTINAL: Abdomen soft, non-tender, nondistended. Normal active bowel sounds MUSCULOSKELETAL: Extremities without clubbing, cyanosis, or edema. NEURO: Alert & Oriented x4 to person, place, time, situation. Moves all ext x4 A/P Problem List: (1) Weakness Status: Acute Plan: - Pt is a 51 y/o female with hx of GIST, HTN, Anxiety and alcohol abuse. - [place] [facility] [place] with increased weakness, nausea, and tremors. - She has reportedly had progressively worsening generalized weakness for several months. This has been worse in the last few days. Pt has fallen at home several times in the last few months but the last time she fall on 04/04/17 she was unable to get herself up off the floor. - She has had significant nausea and poor appetite for several weeks. - Pt drinks alcohol daily (2-3 beers per day) but has not had any alcohol intake since 04/03/17 - Pt stopped her Reglan, which she had been on for several months, about 1 week ago - Head CT in the ED was negative for acute changes. - Pt admitted with significant electrolyte abnormalities: hyponatremia and hypokalemia likely d/t poor PO intake and etoh - IVFs - BMP, Mag in AM - She has significant electrolyte abnormalities with hyponatremia and hypokalemia. - Pt has received oral potassium and is on IVF with NS with KCl. - Recheck labs this evening. - Pts acute worsening of her symptoms may be related to alcohol withdrawal so she will be started on Scheduled Librium 7.5mg TID and Ativan PRN - Check Digoxin level, TSH/Free T4, Vitamin B12, Folate, Ammonia, and RPR - Given MVI/Thiamine/Folate - Alcohol withdrawal precautions - monitoring analyst - Check labs to r/o SIADH - PT evaluation - Monitor labs closely - Supportive care (2) Hyponatremia Status: Acute Plan: - See above. (3) Hypokalemia Status: Acute Plan: - See above. (4) Alcohol abuse Status: Acute Plan: - DTs - Pt tremulous on admission, improving - scheduled librium - ativan prn per [facility] protocol - MVI, folate, thiamine - f/u with [facility] after discharge - alcohol cessation d/w pt at length. - ammonia level mildly elevated - start lactulose - repeat ammonia level in AM - obtain liver US (5) HTN (hypertension) Status: Chronic Plan: - verapamil, digoxin - [facility] EHR currently unavailable to me from [place] - will need to review reasons for above regimen (6) Asthma Status: Chronic Plan: - Cont. Singulair - Duonebs PRN (7) Anxiety Status: Chronic Plan: - Home meds continued (8) History of gastrointestinal stromal tumor (GIST) Status: Resolved Tyson Kirkland DO Apr 08, 2017 14:47
[2017-04-08] MEDS ORDERED: LACTULOSE SYRUP 20 GM/30 ML CUP PO SCH (15:00)
--- NOTE | 2017-04-08 19:50 | RADRPT ---
EXAM DATE/TIME: 04/08/2017 18:52 [place] COMPARISON: No previous studies available for comparison. INDICATIONS : Nausea/vomiting. MEDICAL HISTORY : Hypercholesterolemia. Emphysema. Hernia, hiatal. Hypothyroidism. Head trauma. Tremors. HTN. COPD. Ast hma. Dyspnea. Gastric tumor. Ulcer. GERD. Arthritis. Panic attacks. SURGICAL HISTORY : Tonsillectomy. GIST tumor resection. Laproscopic surgery for endometriosis x3. ENCOUNTER: Initial ACUITY: 1 day PAIN SCORE: 3/10 LOCATION: Bilateral upper quadrant MEASUREMENTS: LIVER: 13.2 cm length COMMON DUCT: 3 mm RIGHT KIDNEY: 10.2 x 5.2 x 4.9 cm SPLEEN: 9.1 cm length FINDINGS: LIVER: Mildly heterogeneous echotexture but without definite nodularity. There is a 15 mm simple, benign cys t of the right hepatic lobe. No focal solid lesion. No intrahepatic lower distention. Flow direction and velocity in the main portal vein within normal limits. COMMON DUCT: No intraluminal mass or stone visualized. GALLBLADDER: Contracted. No sludge or stones demonstrated. No pericholecystic fluid. No sonographic Jackson's sign. PANCREAS: The visualized portions are within normal limits. RIGHT KIDNEY: No hydronephrosis, stone or mass. SPLEEN: No focal lesion. CONCLUSION: 1. Mildly heterogeneous liver but not convincingly cirrhotic. 2. Small, benign right hepatic lobe cyst. No concerning focal hepatic lesion. 3. Contracted gallbladder. No sludge, stones or evidence of cholecystitis. Ephraim Weathers MD on April 08, 2017 at 19:47 Board Certified Radiologist. This report was verified electronically.
[2017-04-08] MEDS: MONTELUKAST SODIUM 10 MG TAB PO SCH (20:51)
[2017-04-08] MEDS: LACTULOSE SYRUP 20 GM/30 ML CUP PO SCH (20:52)
[2017-04-09] VITALS (8 sets, daily range): BP systolic 133–159; BP diastolic 80–89; PULSE 79–90; RESP 16–18; TEMP 98–99.8; O2SAT 97–100
[2017-04-09] MEDS: ONDANSETRON HCL 4 MG/2 ML VIAL IVP PRN ×3 (04:36→22:22)
[2017-04-09] MEDS: GEMFIBROZIL 600 MG TAB PO SCH ×2 (07:59→16:04)
[2017-04-09 08:34] LABS: AUTOMATED NEUTROPHIL # 7.3 TH/MM3 (1.8-7.7); BASOPHIL # 0.1 TH/MM3 (0-0.2); BASOPHIL % 0.5 % (0.0-2.0); EOSINOPHIL # 0.1 TH/MM3 (0-0.4); EOSINOPHIL % 0.7 % (0.0-4.0); HEMATOCRIT 33.1 % (35.0-46.0); HEMO FLAGS DIFF FINAL; LYMPH % 8.9 % (9.0-44.0); LYMPHOCYTE # 0.8 TH/MM3 (1.0-4.8); MEAN CORPUSCULAR HGB CONC 34.8 % (32.0-36.0); MONO % 12.6 % (0.0-8.0); NEUT % 77.3 % (16.0-70.0); PLATELET COUNT 163 TH/MM3 (150-450); RED CELL DISTRIBUTION WIDTH 16.3 % (11.6-17.2); WHITE BLOOD COUNT 9.4 TH/MM3 (4.0-11.0)
[2017-04-09 08:57] LABS: BICARBONATE 23.4 MEQ/L (21.0-32.0); MAGNESIUM 1.5 MG/DL (1.5-2.5)
[2017-04-09] MEDS: busPIRone HCL 5 MG TAB PO SCH ×2 (09:18→22:21)
[2017-04-09] MEDS: THIAMINE HCL 100 MG TAB PO SCH (09:18)
[2017-04-09] MEDS: PANTOPRAZOLE SOD 40 MG DELAYED RELEASE TAB PO SCH (09:18)
[2017-04-09] MEDS: MULTIVITAMIN TAB PO SCH (09:19)
[2017-04-09] MEDS: DIGOXIN 0.25 MG TAB PO SCH (09:19)
[2017-04-09] MEDS: VERAPAMIL HCL 180 MG SUSTAINED RELEASE TAB PO SCH (09:19)
[2017-04-09] MEDS: FOLIC ACID 1 MG TAB PO SCH (09:19)
[2017-04-09] MEDS: SODIUM CHLORIDE 0.9% FLUSH 10 ML FLUSH IV FLUSH SCH ×2 (09:19→22:22)
[2017-04-09] MEDS: LACTULOSE SYRUP 20 GM/30 ML CUP PO SCH (09:21)
[2017-04-09] MEDS: NS + KCL 20 MEQ INJ 1,000 ML IV SCH (12:43)
--- NOTE | 2017-04-09 13:38 | HHI.PR ---
Subjective Remarks Pt overall feeling better today She is tolerating her diet, some nausea, no vomiting She has had 3 loose BMs today Denies any abdominal pain Pt feels that cognitively she is improved today Pt has been more stable on her feet. Objective Vitals Vital Signs Date Time Temp Pulse Resp B/P Pulse Ox O2 Delivery O2 Flow Rate FiO2 04/09/17 12:38 79 04/09/17 12:11 98.0 89 18 133/80 100 04/09/17 08:12 98.6 89 18 144/89 97 04/09/17 04:30 98.5 87 16 159/87 99 04/09/17 00:00 99.8 90 16 136/87 99 04/08/17 20:00 98.8 91 16 155/79 99 04/08/17 15:55 98.6 98 18 110/60 97 04/08/17 13:30 18 04/08/17 04/08/17 04/09/17 14:59 22:59 06:59 Intake Total 1284 ml 480 ml Output Total 2 ml Balance 1282 ml 480 ml Intake Oral 360 ml 480 ml IV Total 924 ml Output Urine Total 2 ml # Voids 3 5 # Bowel Movements 2 1 Result Diagram: 04/09/17 0818 04/09/17 0818 Other Results Laboratory Tests Test 04/07/17 04/07/17 04/08/17 04/09/17 13:40 22:39 11:09 08:18 Urine Color YELLOW Urine Turbidity CLEAR Urine pH 7.0 Urine Specific [place] 1.004 Urine Protein NEG mg/dL Urine Glucose (UA) NEG mg/dL Urine Ketones NEG mg/dL Urine Occult Blood NEG Urine Nitrite NEG Urine Bilirubin NEG Urine Urobilinogen LESS THAN 2.0 MG/DL Urine Leukocyte Esterase NEG Urine RBC LESS THAN 1 /hpf Microscopic Urinalysis Comment CATH-CULT NOT IND Urine Osmolality 103 MOSM/KG Urine Random Sodium 18 MEQ/L Urine Random Chloride LESS THAN 10 MEQ/L Urine Opiates Screen NEG Urine Barbiturates Screen NEG Urine Amphetamines Screen NEG Urine Benzodiazepines Screen POS Urine Cocaine Screen NEG Urine Cannabinoids Screen NEG Sodium Level 136 MEQ/L 134 MEQ/L 135 MEQ/L Potassium Level 3.0 MEQ/L 3.3 MEQ/L 3.0 MEQ/L Chloride Level 102 MEQ/L 101 MEQ/L 105 MEQ/L Carbon Dioxide Level 25.9 MEQ/L 22.8 MEQ/L 23.4 MEQ/L Anion Gap 8 MEQ/L 10 MEQ/L 7 MEQ/L Blood Urea Nitrogen 4 MG/DL 4 MG/DL 2 MG/DL Creatinine 0.42 MG/DL 0.48 MG/DL 0.29 MG/DL Estimat Glomerular Filtration 158 ML/MIN 136 ML/MIN 243 ML/MIN Rate Random Glucose 94 MG/DL 81 MG/DL 73 MG/DL Serum Osmolality 277 MOSM/KG Calcium Level 8.1 MG/DL 8.8 MG/DL 8.0 MG/DL Ammonia 48 MCMOL/L 36 MCMOL/L Vitamin B12 Level 1104 PG/ML Folate 2.6 NG/ML Free Thyroxine 1.46 NG/DL Thyroid Stimulating Hormone 1.880 uIU/ML 3rd Gen Digoxin Level 0.8 NG/ML Acetaminophen Level LESS THAN 2.0 MCG/ML Rapid Plasma Reagin NON-REACTIVE White Blood Count 11.7 TH/MM3 9.4 TH/MM3 Red Blood Count 3.84 MIL/MM3 3.60 MIL/MM3 Hemoglobin 12.1 GM/DL 11.5 GM/DL Hematocrit 35.6 % 33.1 % Mean Corpuscular Volume 92.5 FL 92.0 FL Mean Corpuscular Hemoglobin 31.4 PG 32.0 PG Mean Corpuscular Hemoglobin 33.9 % 34.8 % Concent Red Cell Distribution Width 15.7 % 16.3 % Platelet Count 135 TH/MM3 163 TH/MM3 Mean Platelet Volume 8.5 FL 7.7 FL Neutrophils (%) (Auto) 85.9 % 77.3 % Lymphocytes (%) (Auto) 5.2 % 8.9 % Monocytes (%) (Auto) 8.7 % 12.6 % Eosinophils (%) (Auto) 0.1 % 0.7 % Basophils (%) (Auto) 0.1 % 0.5 % Neutrophils # (Auto) 10.0 TH/MM3 7.3 TH/MM3 Lymphocytes # (Auto) 0.6 TH/MM3 0.8 TH/MM3 Monocytes # (Auto) 1.0 TH/MM3 1.2 TH/MM3 Eosinophils # (Auto) 0.0 TH/MM3 0.1 TH/MM3 Basophils # (Auto) 0.0 TH/MM3 0.1 TH/MM3 CBC Comment DIFF FINAL DIFF FINAL Differential Comment Total Bilirubin 1.3 MG/DL Direct Bilirubin 0.6 MG/DL Indirect Bilirubin 0.7 MG/DL Aspartate Amino Transf 153 U/L (AST/SGOT) Alanine Aminotransferase 88 U/L (ALT/SGPT) Alkaline Phosphatase 140 U/L Total Protein 6.9 GM/DL Albumin 2.5 GM/DL Magnesium Level 1.5 MG/DL Imaging Last Impressions Liver Ultrasound 04/08/17 0000 Signed Impressions: Service Date/Time: Saturday, April 08, 2017 18:52 - CONCLUSION: 1. Mildly heterogeneous liver but not convincingly cirrhotic. 2. Small, benign right hepatic lobe cyst. No concerning focal hepatic lesion. 3. Contracted gallbladder. No sludge, stones or evidence of cholecystitis. Ephraim Weathers MD Head CT 04/07/17 1136 Signed Impressions: Service Date/Time: Friday, April 07, 2017 13:12 - CONCLUSION: 1. No acute intracranial abnormality. Alfredo Molina MD Chest X-Ray 04/07/17 0000 Signed Impressions: Service Date/Time: Friday, April 07, 2017 12:36 - CONCLUSION: No acute cardiopulmonary abnormality is identified. Ephraim Chavez MD Last Impressions Head CT 04/07/17 1136 Signed Impressions: Service Date/Time: Friday, April 07, 2017 13:12 - CONCLUSION: 1. No acute intracranial abnormality. Alfredo Molina MD Chest X-Ray 04/07/17 0000 Signed Impressions: Service Date/Time: Friday, April 07, 2017 12:36 - CONCLUSION: No acute cardiopulmonary abnormality is identified. Ephraim Chavez MD Objective Remarks General: NAD, AAOx3 Chest: CTA Cardiac: Regular Abd: +BS, soft ND/Nt Ext: No edema A/P Problem List: (1) Weakness Status: Acute Plan: - Pt is a 51 y/o female with hx of GIST, HTN, Anxiety and alcohol abuse. - She presented [place] [facility] [place] with increased weakness, nausea, and tremors. - She has reportedly had progressively worsening generalized weakness for several months. This has been worse in the last few days. Pt has fallen at home several times in the last few months but the last time she fall on 04/04/17 she was unable to get herself up off the floor. - She has had significant nausea and poor appetite for several weeks. - Pt drinks alcohol daily (2-3 beers per day) but has not had any alcohol intake since 04/03/17 - Pt stopped her Reglan, which she had been on for several months, about 1 week ago - Head CT in the ED was negative for acute changes. - Pt admitted with significant electrolyte abnormalities: hyponatremia and hypokalemia likely d/t poor PO intake and etoh - IVFs - She has significant electrolyte abnormalities with hyponatremia and hypokalemia. - Pt has received oral potassium and is on IVF with NS with KCl. - Pts acute worsening of her symptoms may be related to alcohol withdrawal - She was started on Scheduled Librium 10mg TID and Ativan PRN - MVI/Thiamine/Folate - Alcohol withdrawal precautions - library monitor - Labs negative for SIADH - PT recommending HHC/PT (2) Hyponatremia Status: Acute Plan: - See above. (3) Hypokalemia Status: Acute Plan: - See above. (4) Alcohol abuse Status: Acute Plan: - DTs - Pt tremulous on admission, improving - scheduled librium - activa prn per [facility] protocol - MVI, folate, thiamine - f/u with [facility] after discharge - alcohol cessation d/w pt at length. - ammonia level mildly elevated - Cont. Lactulose 15mL daily, titrate to 2-3 BMs per day - Repeat ammonia level 36 today - Liver US (04/07) --> Mildly heterogeneous liver but not convincingly cirrhotic. Small, benign right hepatic lobe cyst. No concerning focal hepatic lesion. Contracted gallbladder. No sludge, stones or evidence of cholecystitis. (5) HTN (hypertension) Status: Chronic Plan: - verapamil, digoxin - Pt had some sinus tach on telemetry but Dig resumed this morning and HR is stable currently (6) Asthma Status: Chronic Plan: - Cont. Singulair - Duonebs PRN (7) Anxiety Status: Chronic Plan: - Home meds continued (8) History of gastrointestinal stromal tumor (GIST) Status: Resolved Assessment and Plan Patient examined. Assessment and plan formulated with Zayda Lay PA-C. I agree with the above. Zayda Lay Apr 09, 2017 13:37 Tyson Kirkland DO Apr 14, 2017 00:46
--- NOTE | 2017-04-09 13:40 | HHI.FF ---
Face to Face Verification Diagnosis: (1) Weakness (2) Alcohol abuse (3) History of gastrointestinal stromal tumor (GIST) (4) HTN (hypertension) (5) Asthma (6) Hyponatremia (7) Anxiety (8) Hypokalemia Physical Therapy Order: Evaluate and Treat, Improve ambulation, Strength and gait training Home Health Nursing Order: Medical education Nursing assessment with vital signs Instructions: Please draw CBC, BMP, Mg+, Digoxin level on Friday04/14/[address] Constance Stevens I have seen patient Hortencia Verdugo on 04/09/17. My clinical findings support the need for the requested home health care services because: Deconditioned w/ increased weakness Limited ability to care for self High risk of falls I certify that my clinical findings support that this patient is homebound because: Unsteady gait/balance Zayda Lay Apr 09, 2017 13:40
[2017-04-09] MEDS ORDERED: LACT10SO PO (13:42)
[2017-04-09] MEDS ORDERED: ZOFR4TAB3 SL (13:42)
[2017-04-09] MEDS: POTASSIUM CHLORIDE 20 MEQ CONTROLLED RELEASE TAB PO SCH ×2 (16:04→22:21)
[2017-04-09] MEDS: TEMAZEPAM 15 MG CAP PO PRN (22:21)
[2017-04-09] MEDS: MONTELUKAST SODIUM 10 MG TAB PO SCH (22:21)
[2017-04-10 00:16] VITALS: BP 126/68; PULSE 88; RESP 18; TEMP 97.3; O2SAT 100
[2017-04-10 04:40] VITALS: BP 131/74; PULSE 67; RESP 20; TEMP 98.7; O2SAT 99
[2017-04-10] MEDS: GEMFIBROZIL 600 MG TAB PO SCH (06:46)
[2017-04-10 08:37] VITALS: BP 128/84; PULSE 84; RESP 20; TEMP 99.5; O2SAT 98
[2017-04-10] MEDS: PANTOPRAZOLE SOD 40 MG DELAYED RELEASE TAB PO SCH (09:12)
[2017-04-10] MEDS: FOLIC ACID 1 MG TAB PO SCH (09:12)
[2017-04-10] MEDS: THIAMINE HCL 100 MG TAB PO SCH (09:12)
[2017-04-10] MEDS: MULTIVITAMIN TAB PO SCH (09:12)
[2017-04-10] MEDS: busPIRone HCL 5 MG TAB PO SCH (09:13)
[2017-04-10] MEDS: DIGOXIN 0.25 MG TAB PO SCH (09:13)
[2017-04-10] MEDS: SODIUM CHLORIDE 0.9% FLUSH 10 ML FLUSH IV FLUSH SCH (09:14)
[2017-04-10] MEDS: LACTULOSE SYRUP 20 GM/30 ML CUP PO SCH (09:14)
[2017-04-10] MEDS: VERAPAMIL HCL 180 MG SUSTAINED RELEASE TAB PO SCH (09:14)
[2017-04-10 09:46] LABS: BICARBONATE 22.8 MEQ/L (21.0-32.0); MAGNESIUM 1.5 MG/DL (1.5-2.5)
[2017-04-10 12:33] VITALS: BP 132/79; PULSE 73; RESP 20; TEMP 99.5; O2SAT 100
--- NOTE | 2017-04-10 14:09 | HHI.DS ---
Discharge Summary Admission Date Apr 07, 2017 at 15:08 Discharge Date: Apr 10, 2017 Admitting Diagnosis Hypokalemia/Hyponatremia (1) Weakness Diagnosis: Principal (2) Hyponatremia Diagnosis: Secondary (3) Hypokalemia Diagnosis: Secondary (4) Alcohol abuse Diagnosis: Secondary (5) HTN (hypertension) Diagnosis: Secondary (6) Asthma Diagnosis: Secondary (7) Anxiety Diagnosis: Secondary (8) History of gastrointestinal stromal tumor (GIST) Diagnosis: Secondary Brief History Ms. Verdugo is a 51 y/o female with hx of GIST tumor that was resected in January 2016, hypertension, asthma, hypothyroidism, and migraine headaches who [place] [facility] [place] with complaints of increased weakness, nausea and dizziness. She reports that the nausea has been an issue for the last few weeks along with this tremulousness mostly in the upper extremities. Her reports that in the last several months the patient has fallen at home several times. Typically she is able to get up off the ground by herself but the last time she fell which was last Friday (04/04/17), she was unable to get up off the ground by herself and was there for approximately 4-5 hours. She has a bruise on her chin and reports that she hit her chin when she fell, but denies any head injury or loss of consciousness. Of note, the pt states that since her stomach surgery last year she has been on Reglan which she stopped about a week ago and she feels that her shakiness has been worse since stopping the medication. Pt has not been eating much over the last few weeks due to increased nausea. She does drink alcohol daily, 2-3 beers, and her last alcoholic beverage was last , 04/03/17. Her baseline level of functioning seems to be that requiring assistance to ambulate, but says she is usually able to walk around very slowly holding onto things in her home. She's been having worsening trouble with her balance for the past several months, but in the last few days this seems to be worse. Pts labs at admission revealed significant electrolyte abnormalities with Na+ 124, K+ 2.8. Her LFTs are elevated with TBili 1.4, AST 149, ALT 83, AlkPhos 150. Pts platelet count is also decreased to 122. CBC/BMP: 04/09/17 0818 04/10/17 0822 Significant Findings Laboratory Tests Test 04/07/17 04/08/17 04/09/17 04/10/17 22:39 11:09 08:18 08:22 Potassium Level 3.0 MEQ/L 3.3 MEQ/L 3.0 MEQ/L (3.5-5.1) (3.5-5.1) (3.5-5.1) Blood Urea Nitrogen 4 MG/DL (7-18) 4 MG/DL (7-18) 2 MG/DL (7-18) 4 MG/DL (7-18) Creatinine 0.42 MG/DL 0.48 MG/DL 0.29 MG/DL 0.45 MG/DL (0.50-1.00) (0.50-1.00) (0.50-1.00) (0.50-1.00) Calcium Level 8.1 MG/DL 8.0 MG/DL (8.5-10.1) (8.5-10.1) Ammonia 48 MCMOL/L 36 MCMOL/L (11-32) (11-32) Vitamin B12 Level 1104 PG/ML (193-986) Folate 2.6 NG/ML (3.1-17.5) Acetaminophen Level LESS THAN 2.0 MCG/ML (10.0-30.0) White Blood Count 11.7 TH/MM3 (4.0-11.0) Red Blood Count 3.84 MIL/MM3 3.60 MIL/MM3 (4.00-5.30) (4.00-5.30) Platelet Count 135 TH/MM3 (150-450) Neutrophils (%) (Auto) 85.9 % 77.3 % (16.0-70.0) (16.0-70.0) Lymphocytes (%) (Auto) 5.2 % 8.9 % (9.0-44.0) (9.0-44.0) Monocytes (%) (Auto) 8.7 % (0.0-8.0) 12.6 % (0.0-8.0) Neutrophils # (Auto) 10.0 TH/MM3 (1.8-7.7) Lymphocytes # (Auto) 0.6 TH/MM3 0.8 TH/MM3 (1.0-4.8) (1.0-4.8) Monocytes # (Auto) 1.0 TH/MM3 1.2 TH/MM3 (0-0.9) (0-0.9) Sodium Level 134 MEQ/L 135 MEQ/L 134 MEQ/L (136-145) (136-145) (136-145) Total Bilirubin 1.3 MG/DL (0.2-1.0) Direct Bilirubin 0.6 MG/DL (0.0-0.2) Aspartate Amino Transf 153 U/L (15-37) (AST/SGOT) Alanine Aminotransferase 88 U/L (10-53) (ALT/SGPT) Alkaline Phosphatase 140 U/L (45-117) Albumin 2.5 GM/DL (3.4-5.0) Hemoglobin 11.5 GM/DL (11.6-15.3) Hematocrit 33.1 % (35.0-46.0) Random Glucose 73 MG/DL (74-106) Imaging Last Impressions Liver Ultrasound 04/08/17 0000 Signed Impressions: Service Date/Time: Saturday, April 08, 2017 18:52 - CONCLUSION: 1. Mildly heterogeneous liver but not convincingly cirrhotic. 2. Small, benign right hepatic lobe cyst. No concerning focal hepatic lesion. 3. Contracted gallbladder. No sludge, stones or evidence of cholecystitis. Ephraim Weathers MD Head CT 04/07/17 1136 Signed Impressions: Service Date/Time: Friday, April 07, 2017 13:12 - CONCLUSION: 1. No acute intracranial abnormality. Alfredo Molina MD Chest X-Ray 04/07/17 0000 Signed Impressions: Service Date/Time: Friday, April 07, 2017 12:36 - CONCLUSION: No acute cardiopulmonary abnormality is identified. Ephraim Chavez MD PE at Discharge General: NAD, AAOx3 Chest: CTA Cardiac: Regular Abd: +BS, soft ND/Nt Ext: No edema Hospital Course Weakness/Hyponatremia/Hypokalemia - Pt is a 51 y/o female with hx of GIST, HTN, Anxiety and alcohol abuse. - [place] [facility] [place] with increased weakness, nausea, and tremors. - She has reportedly had progressively worsening generalized weakness for several months. This has been worse in the last few days. Pt has fallen at home several times in the last few months but the last time she fall on 04/04/17 she was unable to get herself up off the floor. - She has had significant nausea and poor appetite for several weeks. - Pt drinks alcohol daily (2-3 beers per day) but has not had any alcohol intake since 04/03/17 - Pt stopped her Reglan, which she had been on for several months, about 1 week ago - Head CT in the ED was negative for acute changes. - Pt admitted with significant electrolyte abnormalities: hyponatremia and hypokalemia likely d/t poor PO intake and etoh - She has significant electrolyte abnormalities with hyponatremia and hypokalemia. - Pt has received oral potassium and is on IVF with NS with KCl. - It was felt that the acute worsening of her symptoms is likely related to alcohol withdrawal - She was started on Scheduled Librium 10mg TID and Ativan PRN - MVI/Thiamine/Folate - Alcohol withdrawal precautions - campus monitor - Labs negative for SIADH - Pt will be discharged home with [facility]/PT Alcohol abuse - Pt was tremulous on admission, which improved with the Librium - MVI, folate, thiamine - Pt will need to f/u with [facility] mental health after discharge - alcohol cessation d/w pt at length. - ammonia level mildly elevated. She was started on Lactulose 15mL daily, titrate to 2-3 BMs per day, this will be continued at discharge. - Repeat ammonia level 15 on the day of discharge. - Liver US (04/07) --> Mildly heterogeneous liver but not convincingly cirrhotic. Small, benign right hepatic lobe cyst. No concerning focal hepatic lesion. Contracted gallbladder. No sludge, stones or evidence of cholecystitis. HTN (hypertension) - Pt was continued on her Verapamil following admission. - Pt had some sinus tach on telemetry but Dig resumed and HR is stable Pt will need to followup with her PCP, Dr. Stevens in 1 week Pt will need to followup with [facility] in [place] in 1 week to help with counselling regarding her alcohol abuse. She will need to followup with her GI physician, Dr. Barrios, in 2 weeks regarding her fatty liver secondary to alcohol abuse. Pt Condition on Discharge: Stable Discharge Disposition: Disch w/ Home Health Serv Discharge Instructions DIET: Follow Instructions for: Heart Healthy Diet Activities you can perform: Regular-No Restrictions Follow up Referrals: Gastroenterology - [address] Flores PCP Follow-up - [address] Constance Stevens Psychiatry Adult - 1 Week with [facility] in [place] New Medications: Lactulose Liq (Lactulose Liq) 10 Gm/15 Ml Soln 15 ML PO DAILY for encephalopathy, #1 BOTTLE 0 Refills Ondansetron Odt (Zofran Odt) 4 Mg Tab 4 MG SL Q6HR PRN for Nausea/Vomiting, #30 TAB 0 Refills Continued Medications: Alprazolam (Alprazolam) 0.5 Mg Tab 0.5 MG PO Q6H PRN for ANXIETY, TAB 0 Refills Buspirone (Buspirone) 5 Mg Tab 5 MG PO BID for Anxiety, TAB 0 Refills Digoxin (Digoxin) 0.25 Mg Tab 0.25 MG PO DAILY for Regulate Heart Beat, #30 TAB 0 Refills Gemfibrozil (Gemfibrozil) 600 Mg Tab 600 MG PO BIDAC, #60 TAB 0 Refills Take 30 minutes prior to breakfast and dinner. Hydrocodone-Acetaminophen Liq (Hycet Liq) 7.5-325 Mg/15 Ml Soln 10 ML PO Q6H PRN for PAIN, ML 0 Refills Lansoprazole (Lansoprazole) 30 Mg Capdr 30 MG PO DAILY, CAP 0 Refills Montelukast (Singulair) 10 Mg Tab 10 MG PO HS, #30 TAB 0 Refills Verapamil HCl (Verapamil HCl ER) 180 Mg Cap 180 MG PO BID Discontinued Medications: Cetirizine HCl (Zyrtec) 10 Mg Capsule Promethazine (Phenergan) 25 Mg Tablet 25 MG PO ONCE for Nausea/Vomiting, #1 TAB 0 Refills Additional Information Patient examined. Assessment and plan formulated with Zayda Lay PA-C. I agree with the above. Zayda Lay Apr 10, 2017 14:09 Tyson Kirkland DO Apr 14, 2017 00:47
== END 2017-04-10 15:57 | disposition home health service (06) | DRG 641 ==
LOC: NEPD 10:31 → NEDA 15:08 → N05A 18:47
PROVIDERS: ADMIT Hospitalist; ATTEND Hospitalist
DX: E87.6 Hypokalemia (principal); F10.231 Alcohol dependence with withdrawal delirium; K70.0 Alcoholic fatty liver; I10 Essential (primary) hypertension; E87.1 Hypo-osmolality and hyponatremia; F41.9 Anxiety disorder, unspecified; J45.909 Unspecified asthma, uncomplicated; R11.0 Nausea; Z85.00 Personal history of malignant neoplasm of unspecified digestive organ; Z72.0 Tobacco use
CPT/HCPCS: 70450; 71010; 76705; 80048; 80053; 80076; 80162; 80307; 81001; 82140; 82436; 82607; 82746; 83735; 83930; 83935; 84300; 84439; 84443; 85025; 85610; 85730; 86592; 93005; 99285; J2405; J3480; J7030; P9612

== ENCOUNTER 2017-06-09 18:44 | Observation (INO) | payer OTHER ==
[~2017-06-09] VITALS: Ht 162.6 cm; Wt 53.0 kg
[~2017-06-09 18:44] MED LIST changes: -BUSP5 PO; +BUSP5TAB PO; -CALA180T PO; -CETI10 PO; +LACT10SO PO; -LANS30 PO; +LANS30CA PO; -PROM25TA5 PO; +VERA180C PO; +ZOFR4TAB3 SL
--- NOTE | 2017-06-09 20:14 | PD ---
HPI Chief Complaint: GI Complaint Time Seen by Provider: 20:13 Travel History International Travel<30 days: No Contact w/Intl Traveler<30days: No Traveled to known affect area: No History of Present Illness HPI 51-year-old female with history of recurrent EtOH abuse, presents the emergency department with nausea and vomiting after binge drinking according to her . Patient denies specific pain of any kind. Patient was recently hospitalized for similar presentation about a month ago. Patient's states she was alcohol free for a while, and then started drinking a little bit here and there and then it blossomed in the last week. Patient started vomiting this morning has not stopped all day. She continues to have nausea at this time. Patient denies back pain, urinary symptoms, or hemoptysis. She has multiple allergies, please see her list. PFSH Past Medical History Arthritis: Yes (LUMBAR) Autoimmune Disease: No Anxiety: Yes Depression: No Heart Rhythm Problems: No Cancer: No Cardiovascular Problems: Yes (ELEVATED HEARTRATE) High Cholesterol: Yes Chest Pain: No Congestive Heart Failure: No COPD: Yes Cerebrovascular Accident: No Diabetes: No Diminished Hearing: Yes (TINNITUS) Endocrine: No Gastrointestinal Disorders: Yes (GASTRIC TUMOR) GERD: Yes Genitourinary: No Hepatitis: No Hiatal Hernia: Yes Hypertension: Yes Immune Disorder: No Kidney Stones: No Musculoskeletal: Yes (ARTHRITIS LUMBAR) Neurologic: No Psychiatric: Yes (PANIC ATTACKS) Reproductive: No Respiratory: Yes (ASTHMA,COPD) Migraines: No Renal Failure: No Seizures: No Sleep Apnea: No Thyroid Disease: No Ulcer: Yes ?: Not Past Surgical History Abdominal Surgery: No Body Medical Devices: NONE Cardiac Surgery: No Ear Surgery: No Endocrine Surgery: No Eye Surgery: No Genitourinary Surgery: No Gynecologic Surgery: Yes (LAPROSCOPIC SURGERY FOR ENDOMETRIOSIS X3) Oral Surgery: Yes (TONSILLECTOMY) Thoracic Surgery: No Other Surgery: Yes Social History Alcohol Use: Yes (3-4 drinks a day) Tobacco Use: Yes (1 pk a day) Substance Use: No Allergies-Medications (Allergen,Severity, Reaction): Coded Allergies: adhesive (Unverified Allergy, Unknown, PAPER TAPE OK TO USE, 06/09/17) amlodipine (Unverified Adverse Reaction, Severe, MUSCLE WEAKNESS, 06/09/17 ) atorvastatin (Unverified Adverse Reaction, Severe, MUSCLE WEAKNESS, ) carisoprodol (Unverified Adverse Reaction, Severe, ACID REFLUX, 06/09/17) methylprednisolone (Unverified Adverse Reaction, Severe, GERD, 06/09/17) omeprazole (Unverified Adverse Reaction, Severe, CHEST PAIN, 06/09/17) paroxetine (Unverified Adverse Reaction, Severe, 06/09/17) pravastatin (Unverified Adverse Reaction, Severe, MUSCLE WEAKNESS, ) simvastatin (Unverified Adverse Reaction, Severe, MUSCLE WEAKNESS, ) hydrochlorothiazide (Unverified Adverse Reaction, Unknown, HEART ISSUES, 06/09/17) losartan (Unverified Adverse Reaction, Unknown, HEART PROBLEMS, 06/09/17) triamterene (Unverified Adverse Reaction, Unknown, UNKNOWN, 06/09/17) Reported Meds & Prescriptions Reported Meds & Active Scripts Active Zofran Odt (Ondansetron Odt) 4 Mg Tab 4 Mg SL Q6HR PRN Reported I-Cool For Menopause (Genistein) 30 Mg Tab Zyrtec (Cetirizine HCl) 10 Mg Tablet Verapamil HCl ER (Verapamil HCl) 180 Mg Cap 180 Mg PO BID Singulair (Montelukast Sodium) 10 Mg Tab 10 Mg PO HS Lansoprazole 30 Mg Capdr 30 Mg PO DAILY Digoxin 0.25 Mg Tab 0.125 Mg PO DAILY Buspirone (Buspirone HCl) 5 Mg Tab 10 Mg PO TID Alprazolam 0.5 Mg Tab 0.5 Mg PO Q8H PRN Review of Systems Except as stated in HPI: all other systems reviewed are Neg General / Constitutional: No: Fever Eyes: No: Visual changes HENT: No: Headaches Cardiovascular: No: Chest Pain or Discomfort Respiratory: No: Shortness of Breath Gastrointestinal: Positive: Nausea, Vomiting, No: Diarrhea (see history of present illness), Abdominal Pain Genitourinary: No: Dysuria Musculoskeletal: No: Pain Skin: No Rash Neurologic: No: Weakness Psychiatric: No: Depression Endocrine: No: Polydipsia Hematologic/Lymphatic: No: Easy Bruising Physical Exam Narrative GENERAL: She appears cachectic and shaky and somewhat withdrawn SKIN: Warm and dry. Decreased pallor. Decreased turgor. HEAD: Atraumatic. Normocephalic. EYES: Pupils equal and round. No scleral icterus. No injection or drainage. ENT: No nasal bleeding or discharge. Mucous membranes pink and moist. NECK: Trachea midline. Supple and nontender. CARDIOVASCULAR: Regular rate and rhythm. RESPIRATORY: No accessory muscle use. Clear to auscultation. Breath sounds equal bilaterally. GASTROINTESTINAL: Abdomen soft, non-tender, nondistended. Hepatic and splenic margins not palpable. MUSCULOSKELETAL: Extremities without clubbing, cyanosis, or edema. No obvious deformities. NEUROLOGICAL: Awake and alert. No obvious cranial nerve deficits. Motor grossly within normal limits. Five out of 5 muscle strength in the arms and legs. Normal speech. PSYCHIATRIC: Appropriate mood and affect; insight and judgment normal. Data Data Last Documented VS Vital Signs Date Time Temp Pulse Resp B/P (MAP) Pulse Ox O2 Delivery O2 Flow Rate FiO2 06/09/17 22:46 110 18 156/98 (117) 96 Room Air Orders Orders Complete Blood Count With Diff (06/09/17 20:18) Comprehensive Metabolic Panel (06/09/17 20:18) Urinalysis - C+S If Indicated (06/09/17 20:18) Electrocardiogram (06/09/17 20:18) Oximetry (06/09/17 20:18) Iv Access Insert/Monitor (06/09/17 20:18) Ecg Monitoring (06/09/17 20:18) Sodium Chloride 0.9% Flush (Ns Flush) (06/09/17 20:30) Lorazepam Inj (Ativan Inj) (06/09/17 20:30) Drug Screen, Random Urine (06/09/17 20:18) Alcohol (Ethanol) (06/09/17 20:18) Thiamine Inj (Thiamine Inj) (06/09/17 20:30) Sodium Chlor 0.9% 1000 Ml Inj (Ns 1000 M (06/09/17 20:30) Ondansetron Inj (Zofran Inj) (06/09/17 20:30) Nicotine 21 Mg Patch.24 Hr (Habitrol 21 (06/09/17 20:30) Alcohol Withdrawal Asmt-Ciwa Q4HX18 (06/09/17 20:18) Flumazenil Inj (Romazicon Inj) (06/09/17 20:30) Lorazepam (Ativan) (06/09/17 20:30) Lorazepam Inj (Ativan Inj) (06/09/17 20:30) Lorazepam (Ativan) (06/09/17 20:30) Lorazepam Inj (Ativan Inj) (06/09/17 20:30) Lorazepam Inj (Ativan Inj) (06/09/17 20:30) Lorazepam Inj (Ativan Inj) (06/09/17 20:30) Remove Old Patch (06/09/17 20:30) Magnesium (Mg) (06/09/17 20:18) Lipase (06/09/17 20:24) Potassium Chloride (Kcl) (06/09/17 21:45) Lorazepam Inj (Ativan Inj) (06/09/17 22:15) Lorazepam Inj (Ativan Inj) (06/10/17 00:30) Admit Order (Ed Use Only) (06/10/17 00:48) [employer] Worker / Telemetry MARTELL.Q8H (06/10/17 00:48) Activity Bed Rest (06/10/17 00:48) Notify Dr: Other (06/10/17 00:48) Diet Regular Basic (06/10/17 Breakfast) Alcohol Withdrawal Asmt-Ciwa ONCE (06/10/17 00:48) Ondansetron Inj (Zofran Inj) (06/10/17 01:00) Flumazenil Inj (Romazicon Inj) (06/10/17 01:00) Lorazepam (Ativan) (06/10/17 01:00) Lorazepam Inj (Ativan Inj) (06/10/17 01:00) Lorazepam (Ativan) (06/10/17 01:00) Lorazepam Inj (Ativan Inj) (06/10/17 01:00) Lorazepam Inj (Ativan Inj) (06/10/17 01:00) Lorazepam Inj (Ativan Inj) (06/10/17 01:00) Labs Laboratory Tests Test 06/09/17 20:23 White Blood Count 14.0 TH/MM3 Red Blood Count 4.74 MIL/MM3 Hemoglobin 14.3 GM/DL Hematocrit 43.1 % Mean Corpuscular Volume 90.9 FL Mean Corpuscular Hemoglobin 30.3 PG Mean Corpuscular Hemoglobin Concent 33.3 % Red Cell Distribution Width 14.7 % Platelet Count 270 TH/MM3 Mean Platelet Volume 7.2 FL Neutrophils (%) (Auto) 91.0 % Lymphocytes (%) (Auto) 1.8 % Monocytes (%) (Auto) 6.9 % Eosinophils (%) (Auto) 0.0 % Basophils (%) (Auto) 0.3 % Neutrophils # (Auto) 12.7 TH/MM3 Lymphocytes # (Auto) 0.3 TH/MM3 Monocytes # (Auto) 1.0 TH/MM3 Eosinophils # (Auto) 0.0 TH/MM3 Basophils # (Auto) 0.0 TH/MM3 CBC Comment DIFF FINAL Differential Comment Blood Urea Nitrogen 8 MG/DL Creatinine 0.52 MG/DL Random Glucose 127 MG/DL Total Protein 8.9 GM/DL Albumin 3.5 GM/DL Calcium Level 10.5 MG/DL Magnesium Level 1.6 MG/DL Alkaline Phosphatase 112 U/L Aspartate Amino Transf (AST/SGOT) 23 U/L Alanine Aminotransferase (ALT/SGPT) 17 U/L Total Bilirubin 0.9 MG/DL Sodium Level 134 MEQ/L Potassium Level 3.4 MEQ/L Chloride Level 95 MEQ/L Carbon Dioxide Level 31.2 MEQ/L Anion Gap 8 MEQ/L Estimat Glomerular Filtration Rate 124 ML/MIN Lipase 107 U/L Ethyl Alcohol Level LESS THAN 3 MG/DL MDM Medical Decision Making Medical Screen Exam Complete: Yes Emergency Medical Condition: Yes Medical Record Reviewed: Yes Differential Diagnosis Alcohol abuse with withdrawal. History of hypokalemia. Hyponatremia. Weakness. Nausea vomiting. Narrative Course Patient appears medically stable at time of exam. Labs ordered including CBC, CMP, lipase, urinalysis. IV access is obtained patient is given 1 mg Ativan IV as well as 4 mg Zofran IV. Patient is given 100 mg thiamine IV as well as 1000 mg normal saline. Patient after 1 hour states that she continues to be tremulous and nauseous. She is given an additional 1 mg Ativan. CBC shows leukocytosis of 14.0. With 91% neutrophils. CMP shows sodium 134, potassium 3.4, chloride 95. Lipase is normal at 107. Urine is unremarkable. Serum alcohol level was less than 3. Patient is placed under the [facility] protocol. 2300 hrs. care of patient is turned over to Dr. Patel, will determine the final disposition of the patient. Diagnosis Primary Impression: ALCOHOL DEPENDENCE WITH WITHDRAWAL, UNSPECIFIED Condition: Stable Garrett Farrar Jun 09, 2017 20:14
[2017-06-09] MEDS ORDERED: CETI-1 (20:23)
[2017-06-09] MEDS ORDERED: [UNRECOGNIZED DRUG - CODE] (20:23)
[2017-06-09] MEDS ORDERED: LORazepam 2 MG/ML VIAL IV PUSH ONE ×2 (20:30→22:15)
[2017-06-09] MEDS ORDERED: FLUMAZENIL 0.5 MG/5 ML VIAL IV PUSH PRN (20:30)
[2017-06-09] MEDS ORDERED: LORazepam 2 MG TAB PO PRN (20:30)
[2017-06-09] MEDS ORDERED: SODIUM CHLOR 0.9% 1000 ML INJ 1,000 ML IV ONE (20:30)
[2017-06-09] MEDS ORDERED: LORazepam 2 MG/ML VIAL IV PUSH PRN ×3 (20:30)
[2017-06-09] MEDS ORDERED: LORazepam 1 MG TAB PO PRN (20:30)
[2017-06-09] MEDS ORDERED: THIAMINE INJ 100 MG in SODIUM CHLORIDE 0.9% INJ 100 ML IV ONE (20:30)
[2017-06-09] MEDS: REMOVE OLD PATCH T-DERMAL SCH (20:30)
[2017-06-09] MEDS ORDERED: ONDANSETRON HCL 4 MG/2 ML VIAL IV PUSH ONE (20:30)
[2017-06-09] MEDS: NICOTINE 21 MG/24 HR PATCH T-DERMAL SCH (20:53)
[2017-06-09 20:54] VITALS: RESP 18; O2SAT 97
[2017-06-09 21:02] LABS: AUTOMATED NEUTROPHIL # 12.7 TH/MM3 (1.8-7.7); BASOPHIL % 0.3 % (0.0-2.0); HEMATOCRIT 43.1 % (35.0-46.0); HEMO FLAGS DIFF FINAL; LYMPH % 1.8 % (9.0-44.0); LYMPHOCYTE # 0.3 TH/MM3 (1.0-4.8); MEAN CELL VOLUME 90.9 FL (80.0-100.0); MEAN CORPUSCULAR HEMOGLOBIN 30.3 PG (27.0-34.0); MEAN CORPUSCULAR HGB CONC 33.3 % (32.0-36.0); MONO % 6.9 % (0.0-8.0); PLATELET COUNT 270 TH/MM3 (150-450); RED BLOOD COUNT 4.74 MIL/MM3 (4.00-5.30); RED CELL DISTRIBUTION WIDTH 14.7 % (11.6-17.2)
[2017-06-09 21:12] LABS: ALCOHOL LESS THAN 3 MG/DL (0-5); ANION GAP 8 MEQ/L (5-15); AST (GOT) 23 U/L (15-37); BICARBONATE 31.2 MEQ/L (21.0-32.0); BLOOD UREA NITROGEN 8 MG/DL (7-18); CHLORIDE 95 MEQ/L (98-107); GLOMERULAR FILTRATION RATE 124 ML/MIN (>89); MAGNESIUM 1.6 MG/DL (1.5-2.5); POTASSIUM 3.4 MEQ/L (3.5-5.1); SODIUM (NA) 134 MEQ/L (136-145)
[2017-06-09 21:13] LABS: ALT (GPT) 17 U/L (10-53)
[2017-06-09 21:15] LABS: ALKALINE PHOSPHATASE 112 U/L (45-117); TOTAL BILIRUBIN ADULT 0.9 MG/DL (0.2-1.0)
[2017-06-09] MEDS ORDERED: POTASSIUM CHLORIDE 10 MEQ CONTROLLED RELEASE TAB PO ONE (21:45)
[2017-06-09 22:46] VITALS: BP 156/98; PULSE 110; RESP 18; O2SAT 96
[2017-06-10] VITALS (7 sets, daily range): BP systolic 121–163; BP diastolic 72–97; PULSE 85–110; RESP 16–20; TEMP 98.7–99.3; O2SAT 95–98
[2017-06-10] MEDS: LORazepam 2 MG/ML VIAL IV PUSH PRN ×2 (00:28→02:14)
[2017-06-10] MEDS ORDERED: LORazepam 2 MG/ML VIAL IV PUSH ONE (00:30)
[2017-06-10] MEDS ORDERED: LORazepam 2 MG/ML VIAL IV PUSH PRN ×5 (01:00→14:15)
[2017-06-10] MEDS ORDERED: LORazepam 1 MG TAB PO PRN (01:00)
[2017-06-10] MEDS ORDERED: LORazepam 2 MG TAB PO PRN (01:00)
[2017-06-10] MEDS ORDERED: FLUMAZENIL 0.5 MG/5 ML VIAL IV PUSH PRN (01:00)
[2017-06-10] MEDS: SODIUM CHLORIDE 0.9% FLUSH 10 ML FLUSH IVF PRN ×2 (02:14→05:27)
[2017-06-10] MEDS: ONDANSETRON HCL 4 MG/2 ML VIAL IV PUSH PRN (05:26)
[2017-06-10 06:25] LABS: BACTERIA, URINE RARE /hpf; BLOOD, URINE NEG (NEG); COMMENT (UR) CULT NOT INDICATED; CULTURE IF INDICATED CULT NOT INDICATED; GLUCOSE,URINE NEG (NEG); HYALINE CAST, URINE 1 /lpf (RARE); KETONE, URINE 10 mg/dL (NEG); MUCUS URINE MOD /lpf (OCC); NITRITE,URINE NEG (NEG); PH, URINE 7.5 (5.0-8.5); SQUAMOUS EPITHELIAL CELL URINE 3 /hpf (0-5); URINE COLOR YELLOW (YELLW/STRAW)
--- NOTE | 2017-06-10 07:44 | HHI.HP ---
HPI Service [facility] Hospitalists Primary Care Physician Constance Stevens M.D. Admission Diagnosis ETOH WITHDRAWAL Chief Complaint: N/V x 1 day Travel History International Travel<30 Days: No Contact w/Intl Traveler <30 Da: No Traveled to Known Affected Are: No History of Present Illness Ms. 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 Patient was recently hospitalized 03/2017 for similar presentation. Patient reports she drinks about 3-4 beers and 1-2 whiskeys per day. Patient did drink this on Friday along with not eating any food all day. Patient reports that she then had several episodes of vomiting through out the day Friday therefore proceeded to the ER for further evaluation and treatment. Patient reports the vomitus material was mostly liquid. Patient denies bright red blood or coffee ground emesis. Patient also denies abdominal pain, diarrhea rectal bleeding or black tarry stools. Patient continues to have nausea at this time, but no further vomiting. Patient denies fevers, urinary symptoms, or hemoptysis. Review of Systems Constitutional: COMPLAINS OF: Fatigue, DENIES: Fever, Chills Eyes: DENIES: Blurred vision, Diplopia, Vision loss Respiratory: DENIES: Cough, Sputum production, Shortness of breath Cardiovascular: DENIES: Chest pain, Palpitations, Dyspnea on Exertion, Lower Extremity Edema Gastrointestinal: COMPLAINS OF: Nausea, Vomiting, DENIES: Black stools, Bloody stools, BRB per rectum Neurologic: COMPLAINS OF: Abnormal gait, Tremor, DENIES: Headache, Localized weakness, Speech Problems Psychiatric: COMPLAINS OF: Anxiety Past Family Social History Past Medical History GIST diagnosed in 2016 Perforated stomach in 2016 Asthma GERD HTN Hyperlipidemia Hypothyroidism Panic attacks Past Surgical History EUS with FNA (12/22/15)----> isoechoic mass probably from the fourth layer mildly heterogenic. Pathology with spindle cells with immunohistochemical features of a gastrointestinal stromal tumor (GIST). EGD with submucosal injection and dissection and clipping (02/06/16)----> In the stomach there was a large GIST in between the anterior wall and the large curve close to the antrum, dissection was made into the submucosa Laparoscopic partial gastrectomy for perforated stomach (04/08/16) with Dr. Childers Laparoscopy for endometriosis x 3 Tonsillectomy Reported Medications Zofran Odt (Ondansetron Odt) 4 Mg Tab 4 Mg SL Q6HR PRN I-Cool For Menopause (Genistein) 30 Mg Tab Zyrtec (Cetirizine HCl) 10 Mg Tablet Verapamil HCl ER (Verapamil HCl) 180 Mg Cap 180 Mg PO BID Singulair (Montelukast Sodium) 10 Mg Tab 10 Mg PO HS Lansoprazole 30 Mg Capdr 30 Mg PO DAILY Digoxin 0.25 Mg Tab 0.25 Mg PO DAILY Buspirone (Buspirone HCl) 5 Mg Tab 5 Mg PO BID Alprazolam 0.5 Mg Tab 0.5 Mg PO Q6H PRN Allergies: Coded Allergies: adhesive (Unverified Allergy, Unknown, PAPER TAPE OK TO USE, 06/09/17) amlodipine (Unverified Adverse Reaction, Severe, MUSCLE WEAKNESS, 06/09/17 ) atorvastatin (Unverified Adverse Reaction, Severe, MUSCLE WEAKNESS, ) carisoprodol (Unverified Adverse Reaction, Severe, ACID REFLUX, 06/09/17) methylprednisolone (Unverified Adverse Reaction, Severe, GERD, 06/09/17) omeprazole (Unverified Adverse Reaction, Severe, CHEST PAIN, 06/09/17) paroxetine (Unverified Adverse Reaction, Severe, 06/09/17) pravastatin (Unverified Adverse Reaction, Severe, MUSCLE WEAKNESS, ) simvastatin (Unverified Adverse Reaction, Severe, MUSCLE WEAKNESS, ) hydrochlorothiazide (Unverified Adverse Reaction, Unknown, HEART ISSUES, 06/09/17) losartan (Unverified Adverse Reaction, Unknown, HEART PROBLEMS, 06/09/17) triamterene (Unverified Adverse Reaction, Unknown, UNKNOWN, 06/09/17) Active Ordered Medications Current Medications Medications (Trade) Dose Ordered Sig/Josue Route Start Time Stop Time Status Last Admin (NS Flush) 2 ml UNSCH PRN IVF 06/09/17 20:30 06/10/17 05:27 (Habitrol 21 Mg Patch.24 Hr) 1 patch DAILY T-DERMAL 06/09/17 20:30 06/09/17 20:53 (Romazicon Inj) 0.2 mg Q1M PRN IV PUSH 06/09/17 20:30 (Ativan) 1 mg Q4H PRN PO 06/09/17 20:30 (Ativan Inj) 1 mg Q4H PRN IV PUSH 06/09/17 20:30 06/10/17 02:14 (Ativan) 2 mg Q2H PRN PO 06/09/17 20:30 (Ativan Inj) 2 mg Q2H PRN IV PUSH 06/09/17 20:30 (Ativan Inj) 2 mg Q1H PRN IV PUSH 06/09/17 20:30 (Ativan Inj) 2 mg Q15M PRN IV PUSH 06/09/17 20:30 Miscellaneous Information 1 DAILY T-DERMAL 06/09/17 20:30 (Zofran Inj) 4 mg Q8H PRN IV PUSH 06/10/17 01:00 06/10/17 05:26 (Romazicon Inj) 0.2 mg Q1M PRN IV PUSH 06/10/17 01:00 (Ativan) 1 mg Q4H PRN PO 06/10/17 01:00 (Ativan Inj) 1 mg Q4H PRN IV PUSH 06/10/17 01:00 (Ativan) 2 mg Q2H PRN PO 06/10/17 01:00 (Ativan Inj) 2 mg Q2H PRN IV PUSH 06/10/17 01:00 (Ativan Inj) 2 mg Q1H PRN IV PUSH 06/10/17 01:00 (Ativan Inj) 2 mg Q15M PRN IV PUSH 06/10/17 01:00 Family History Reviewed and noncontributory Social History (+)Alcohol use, 3-4 beers and 1-2 whiskeys per day (+)Tobacco use, smokes daily Denies any illicit drug use Physical Exam Vital Signs Vital Signs Date Time Temp Pulse Resp B/P (MAP) Pulse Ox O2 Delivery O2 Flow Rate FiO2 06/10/17 05:29 108 06/10/17 03:03 98.7 110 20 149/86 (107) 96 06/10/17 01:25 06/09/17 22:46 110 18 156/98 (117) 96 Room Air 06/09/17 20:54 18 97 Room Air Physical Exam GENERAL: Thin female appears disheveled and older than her stated age, in no apparent distress. NECK: Trachea midline, supple, nontender. CARDIO: mildly tachycardic regular rhythm RESP: CTA bilaterally. ABD: +BS, soft, non-tender, nondistended. EXT: Extremities without clubbing, cyanosis, or edema. NEURO: Awake and alert. Pt is not tremulous at this time. Normal speech. Laboratory Laboratory Tests Test 06/09/17 20:23 06/10/17 06:10 White Blood Count 14.0 Red Blood Count 4.74 Hemoglobin 14.3 Hematocrit 43.1 Mean Corpuscular Volume 90.9 Mean Corpuscular Hemoglobin 30.3 Mean Corpuscular Hemoglobin Concent 33.3 Red Cell Distribution Width 14.7 Platelet Count 270 Mean Platelet Volume 7.2 Neutrophils (%) (Auto) 91.0 Lymphocytes (%) (Auto) 1.8 Monocytes (%) (Auto) 6.9 Eosinophils (%) (Auto) 0.0 Basophils (%) (Auto) 0.3 Neutrophils # (Auto) 12.7 Lymphocytes # (Auto) 0.3 Monocytes # (Auto) 1.0 Eosinophils # (Auto) 0.0 Basophils # (Auto) 0.0 CBC Comment DIFF FINAL Differential Comment Blood Urea Nitrogen 8 Creatinine 0.52 Random Glucose 127 Total Protein 8.9 Albumin 3.5 Calcium Level 10.5 Magnesium Level 1.6 Alkaline Phosphatase 112 Aspartate Amino Transf (AST/SGOT) 23 Alanine Aminotransferase (ALT/SGPT) 17 Total Bilirubin 0.9 Sodium Level 134 Potassium Level 3.4 Chloride Level 95 Carbon Dioxide Level 31.2 Anion Gap 8 Estimat Glomerular Filtration Rate 124 Lipase 107 Ethyl Alcohol Level LESS THAN 3 Urine Color YELLOW Urine Turbidity CLEAR Urine pH 7.5 Urine Specific [place] 1.023 Urine Protein 30 Urine Glucose (UA) NEG Urine Ketones 10 Urine Occult Blood NEG Urine Nitrite NEG Urine Bilirubin NEG Urine Urobilinogen 4.0 Urine Leukocyte Esterase NEG Urine RBC 2 Urine WBC 3 Urine Squamous Epithelial Cells 3 Urine Bacteria RARE Urine Hyaline Casts 1 Urine Mucus MOD Microscopic Urinalysis Comment CULT NOT INDICATED Urine Opiates Screen NEG Urine Barbiturates Screen NEG Urine Amphetamines Screen NEG Urine Benzodiazepines Screen POS Urine Cocaine Screen NEG Urine Cannabinoids Screen NEG Result Diagram: 06/09/17202206/09/172022 Caprini VTE Risk Assessment Caprini VTE Risk Assessment: No/Low Risk (score <= 1) Caprini Risk Assessment Model Point Value = 1 Point Value = 2 Point Value = 3 Point Value = 5 Age 41-60 Minor surgery BMI > 25 kg/m2 Swollen legs Varicose veins or History of unexplained or recurrent spontaneous Oral contraceptives or hormone replacement Sepsis (< 1 month) Serious lung disease, including pneumonia (< 1 month) Abnormal pulmonary function Acute myocardial infarction Congestive heart failure (< 1 month) History of inflammatory bowel disease Medical patient at bed rest Age 61-74 Arthroscopic surgery Major open surgery (> 45 min) Laparoscopic surgery (> 45 min) Malignancy Confined to bed (> 72 hours) Immobilizing plaster cast Central venous access Age >= 75 History of VTE Family history of VTE Factor V Leiden Prothrombin [id number] Lupus anticoagulant Anticardiolipin antibodies Elevated serum homocysteine Heparin-induced thrombocytopenia Other congenital or acquired thrombophilia Stroke (< 1 month) Elective arthroplasty Hip, pelvis, or leg fracture Acute spinal cord injury (< 1 month) Prophylaxis Regimen Total Risk Factor Score Risk Level Prophylaxis Regimen 0-1 Low Early ambulation 2 Moderate Order ONE of the following: *Sequential Compression Device (SCD) *Heparin 5000 units SQ BID 3-4 Higher Order ONE of the following medications: *Heparin 5000 units SQ TID *Enoxaparin/Lovenox 40 mg SQ daily (WT < 150 kg, CrCl > 30 mL/min) *Enoxaparin/Lovenox 30 mg SQ daily (WT < 150 kg, CrCl > 10-29 mL/min) *Enoxaparin/Lovenox 30 mg SQ BID (WT < 150 kg, CrCl > 30 mL/min) AND/OR *Sequential Compression Device (SCD) 5 or more Highest Order ONE of the following medications: *Heparin 5000 units SQ TID (Preferred with Epidurals) *Enoxaparin/Lovenox 40 mg SQ daily (WT < 150 kg, CrCl > 30 mL/min) *Enoxaparin/Lovenox 30 mg SQ daily (WT < 150 kg, CrCl > 10-29 mL/min) *Enoxaparin/Lovenox 30 mg SQ BID (WT < 150 kg, CrCl > 30 mL/min) AND *Sequential Compression Device (SCD) Assessment and Plan Problem List: (1) ALCOHOL DEPENDENCE WITH WITHDRAWAL, UNSPECIFIED ICD Codes: F10.239 - ALCOHOL DEPENDENCE WITH WITHDRAWAL, UNSPECIFIED Plan: Nausea and vomiting- secondary to ETOH withdraw - Pt is a 51 y/o female with hx of GIST, HTN, Anxiety and alcohol abuse. - She presented to the ED at [facility] on 06/10/17 with nausea and vomiting x 1 days after drinking and not eating any food on Friday - Pt has refused oral potassium PO - will start IVF NS with KCl. - Recheck labs - Librium 25 mg TID scheduled plan to taper and Ativan PRN - patient counseled on risks of ETOH abuse and instructed to abstain- patient will likely need outpatient mental health services at [place] - Given MVI/Thiamine/Folate - Zofran as needed - Compazine PO x1 - Alcohol withdrawal precautions - industrial health engineer - Monitor labs closely - PT consulted - Supportive care Hyponatremia- mild - See above. Hypokalemia - See above. Alcohol abuse - See above. HTN (hypertension) - monitor trend - Resuming home medications - Checking Digoxin level Asthma- chronic not in acute exacerbation - Cont. home Singulair - Duonebs PRN Anxiety - Home meds continued History of gastrointestinal stromal tumor (GIST) Resolved DVT prophylaxis with SCDs (2) Hyponatremia ICD Codes: E87.1 - Hypo-osmolality and hyponatremia Status: Acute (3) Hypokalemia ICD Codes: E87.6 - Hypokalemia Status: Acute (4) HTN (hypertension) ICD Codes: I10 - Essential (primary) hypertension Status: Chronic (5) Asthma ICD Codes: J45.909 - Unspecified asthma, uncomplicated Status: Chronic (6) History of gastrointestinal stromal tumor (GIST) ICD Codes: Z85.09 - Personal history of malignant neoplasm of other digestive organs Status: Resolved Assessment and Plan Patient examined. Assessment and plan formulated with Jamee Alvarenga PA-C. I agree with the above. etoh w/d. vomiting. general weakness. long discussion about etoh cessation with pt and friend. hopefully d/c tomorrow. Jamee Alvarenga Jun 10, 2017 07:44 Sandoval Sandoval MD Jun 10, 2017 14:37
[2017-06-10] MEDS: REMOVE OLD PATCH T-DERMAL SCH (09:00)
[2017-06-10] MEDS ORDERED: PROCHLORPERAZINE MALEATE 10 MG TAB PO ONE (09:30)
[2017-06-10] MEDS ORDERED: NS + KCL 20 MEQ INJ 1,000 ML IV SCH (10:00)
[2017-06-10] MEDS: LANSOPRAZOLE SOLUTAB 30 MG TAB PO SCH (11:08)
[2017-06-10] MEDS: NICOTINE 21 MG/24 HR PATCH T-DERMAL SCH (11:12)
[2017-06-10] MEDS: FOLIC ACID 1 MG TAB PO SCH (11:46)
[2017-06-10] MEDS: VERAPAMIL HCL 180 MG SUSTAINED RELEASE TAB PO SCH ×2 (11:47→21:17)
[2017-06-10] MEDS ORDERED: chlordiazePOXIDE 25 MG CAP PO SCH (13:00)
[2017-06-10] MEDS: busPIRone HCL 10 MG TAB PO SCH ×2 (13:33→18:33)
[2017-06-10] MEDS: MULTIVITAMINS/MINERALS THERAPEUTIC TAB PO SCH (13:34)
[2017-06-10 14:24] LABS: BICARBONATE 26.3 MEQ/L (21.0-32.0)
[2017-06-10 14:38] LABS: POTASSIUM 2.7 MEQ/L (3.5-5.1)
[2017-06-10] MEDS ORDERED: TEMAZEPAM 7.5 MG CAP PO PRN (15:00)
[2017-06-10 15:02] LABS: DIGOXIN 0.2 NG/ML (0.8-2.0)
[2017-06-10] MEDS ORDERED: POTASSIUM CHLORIDE 20 MEQ CONTROLLED RELEASE TAB PO ONE (15:15)
[2017-06-10] MEDS: POTASSIUM CHLOR 20 MEQ PREMIX 100 ML IV SCH ×2 (16:08→18:32)
[2017-06-10] MEDS ORDERED: MONTELUKAST SODIUM 10 MG TAB PO SCH (21:00)
[2017-06-11] VITALS: BP 127/85; PULSE 98; RESP 18; TEMP 98.1; O2SAT 93
[2017-06-11 04:09] VITALS: BP 138/87; PULSE 95; RESP 16; O2SAT 97
--- NOTE | 2017-06-11 07:17 | EKG ---
Date Performed: 06/09/2017 Time Performed: 21:45:48 PTAGE: 51 years EKG: SINUS TACHYCARDIA MARKED RIGHT AXIS DEVIATION ABNORMAL ECG Compared to PREVIOUS TRACING axis somewhat more rightward. QT interval no longer prolonged. Heart ra te is faster. PREVIOUS TRACIN04/07/2017 12.01 DOCTOR: Sandoval Watt Interpretating Date/Time 06/11/2017 07:16:00
[2017-06-11 08:50] VITALS: BP 145/86; PULSE 88; RESP 18; TEMP 99; O2SAT 97
[2017-06-11] MEDS: NICOTINE 21 MG/24 HR PATCH T-DERMAL SCH (09:00)
[2017-06-11] MEDS ORDERED: DIGOXIN 0.125 MG TAB PO SCH (09:00)
[2017-06-11] MEDS: REMOVE OLD PATCH T-DERMAL SCH (09:00)
[2017-06-11] MEDS ORDERED: ACETAMINOPHEN/HYDROcodone 325 MG/5 MG TAB PO PRN (09:15)
--- NOTE | 2017-06-11 10:04 | HHI.PR ---
Subjective Remarks Pt reports that her nausea is improving, she is tolerating her diet She complains of chronic back pain and headache Objective Vitals Vital Signs Date Time Temp Pulse Resp B/P (MAP) Pulse Ox O2 Delivery O2 Flow Rate FiO2 06/11/17 08:50 99.0 88 18 145/86 (105) 97 06/11/17 04:09 95 16 138/87 (104) 97 06/11/17 00:00 98.1 98 18 127/85 (99) 93 06/10/17 21:00 92 06/10/17 20:50 99.2 85 17 142/89 (106) 95 06/10/17 16:00 99.2 103 16 121/72 (88) 97 06/10/17 12:00 98.8 98 16 163/97 (119) 95 Result Diagram: 06/09/17202206/10/171333 Other Results Laboratory Tests Test 06/09/17 20:23 06/10/17 06:10 06/10/17 13:34 White Blood Count 14.0 TH/MM3 Red Blood Count 4.74 MIL/MM3 Hemoglobin 14.3 GM/DL Hematocrit 43.1 % Mean Corpuscular Volume 90.9 FL Mean Corpuscular Hemoglobin 30.3 PG Mean Corpuscular Hemoglobin Concent 33.3 % Red Cell Distribution Width 14.7 % Platelet Count 270 TH/MM3 Mean Platelet Volume 7.2 FL Neutrophils (%) (Auto) 91.0 % Lymphocytes (%) (Auto) 1.8 % Monocytes (%) (Auto) 6.9 % Eosinophils (%) (Auto) 0.0 % Basophils (%) (Auto) 0.3 % Neutrophils # (Auto) 12.7 TH/MM3 Lymphocytes # (Auto) 0.3 TH/MM3 Monocytes # (Auto) 1.0 TH/MM3 Eosinophils # (Auto) 0.0 TH/MM3 Basophils # (Auto) 0.0 TH/MM3 CBC Comment DIFF FINAL Differential Comment Blood Urea Nitrogen 8 MG/DL 6 MG/DL Creatinine 0.52 MG/DL 0.66 MG/DL Random Glucose 127 MG/DL 120 MG/DL Total Protein 8.9 GM/DL Albumin 3.5 GM/DL Calcium Level 10.5 MG/DL 9.7 MG/DL Magnesium Level 1.6 MG/DL 1.5 MG/DL Alkaline Phosphatase 112 U/L Aspartate Amino Transf (AST/SGOT) 23 U/L Alanine Aminotransferase (ALT/SGPT) 17 U/L Total Bilirubin 0.9 MG/DL Sodium Level 134 MEQ/L 137 MEQ/L Potassium Level 3.4 MEQ/L 2.7 MEQ/L Chloride Level 95 MEQ/L 100 MEQ/L Carbon Dioxide Level 31.2 MEQ/L 26.3 MEQ/L Anion Gap 8 MEQ/L 11 MEQ/L Estimat Glomerular Filtration Rate 124 ML/MIN 94 ML/MIN Lipase 107 U/L Ethyl Alcohol Level LESS THAN 3 MG/DL Urine Color YELLOW Urine Turbidity CLEAR Urine pH 7.5 Urine Specific [place] 1.023 Urine Protein 30 mg/dL Urine Glucose (UA) NEG mg/dL Urine Ketones 10 mg/dL Urine Occult Blood NEG Urine Nitrite NEG Urine Bilirubin NEG Urine Urobilinogen 4.0 MG/DL Urine Leukocyte Esterase NEG Urine RBC 2 /hpf Urine WBC 3 /hpf Urine Squamous Epithelial Cells 3 /hpf Urine Bacteria RARE /hpf Urine Hyaline Casts 1 /lpf Urine Mucus MOD /lpf Microscopic Urinalysis Comment CULT NOT INDICATED Urine Opiates Screen NEG Urine Barbiturates Screen NEG Urine Amphetamines Screen NEG Urine Benzodiazepines Screen POS Urine Cocaine Screen NEG Urine Cannabinoids Screen NEG Digoxin Level 0.2 NG/ML Objective Remarks General: NAD, AAOx3 Chest: CTA Cardiac: Regular, tachy Abd: +BS, soft ND/NT Ext: No edema A/P Problem List: (1) ALCOHOL DEPENDENCE WITH WITHDRAWAL, UNSPECIFIED ICD Codes: F10.239 - ALCOHOL DEPENDENCE WITH WITHDRAWAL, UNSPECIFIED Plan: Nausea and vomiting- secondary to ETOH withdraw - Pt is a 51 y/o female with hx of GIST, HTN, Anxiety and alcohol abuse. - She presented to the ED at [facility] [place] on 06/10/17 with nausea and vomiting x 1 days after drinking and not eating any food on Friday - Pt has refused oral potassium PO - Cont. IVF NS with KCl. - Librium 25 mg TID scheduled plan to taper and Ativan PRN - patient counseled on risks of ETOH abuse and instructed to abstain- patient will likely need outpatient mental health services at [place] - Given MVI/Thiamine/Folate - Zofran as needed - Alcohol withdrawal precautions - monitor and storage bin tender - Monitor labs closely - PT consulted - Supportive care - Awaiting repeat labs for today to determine discharge disposition Hyponatremia- mild - See above. Hypokalemia - See above. Alcohol abuse - See above. HTN (hypertension) - Stable on home meds - Digoxin level low at 0.2 on 06/10 Asthma- chronic not in acute exacerbation - Cont. home Singulair - Duonebs PRN Anxiety - Home meds continued History of gastrointestinal stromal tumor (GIST) - Resolved DVT prophylaxis with SCDs (2) Hyponatremia ICD Codes: E87.1 - Hypo-osmolality and hyponatremia Status: Acute (3) Hypokalemia ICD Codes: E87.6 - Hypokalemia Status: Acute (4) HTN (hypertension) ICD Codes: I10 - Essential (primary) hypertension Status: Chronic (5) Asthma ICD Codes: J45.909 - Unspecified asthma, uncomplicated Status: Chronic (6) History of gastrointestinal stromal tumor (GIST) ICD Codes: Z85.09 - Personal history of malignant neoplasm of other digestive organs Status: Resolved Assessment and Plan Patient examined. Assessment and plan formulated with Zayda Lay PA-C. I agree with the above. dc home. etoh cessation discussed. pt and friend have etoh support info for [facility] and other. Zayda Lay Jun 11, 2017 10:04 Sandoval Sandoval MD Jun 11, 2017 13:53
[2017-06-11] MEDS: FOLIC ACID 1 MG TAB PO SCH (10:22)
[2017-06-11] MEDS: MULTIVITAMINS/MINERALS THERAPEUTIC TAB PO SCH (10:23)
[2017-06-11] MEDS: LANSOPRAZOLE SOLUTAB 30 MG TAB PO SCH (10:23)
[2017-06-11] MEDS: VERAPAMIL HCL 180 MG SUSTAINED RELEASE TAB PO SCH (10:25)
[2017-06-11] MEDS: busPIRone HCL 10 MG TAB PO SCH ×2 (10:25→12:17)
[2017-06-11] MEDS: ONDANSETRON HCL 4 MG/2 ML VIAL IV PUSH PRN (12:17)
[2017-06-11 12:18] LABS: AUTOMATED NEUTROPHIL # 7.4 TH/MM3 (1.8-7.7); BASOPHIL % 0.5 % (0.0-2.0); EOSINOPHIL % 0.4 % (0.0-4.0); HEMATOCRIT 39.5 % (35.0-46.0); HEMO FLAGS DIFF FINAL; LYMPH % 7.5 % (9.0-44.0); LYMPHOCYTE # 0.7 TH/MM3 (1.0-4.8); MEAN CELL VOLUME 92.4 FL (80.0-100.0); MEAN CORPUSCULAR HEMOGLOBIN 30.8 PG (27.0-34.0); MEAN CORPUSCULAR HGB CONC 33.3 % (32.0-36.0); MONO % 6.4 % (0.0-8.0); NEUT % 85.2 % (16.0-70.0); PLATELET COUNT 196 TH/MM3 (150-450); RED BLOOD COUNT 4.27 MIL/MM3 (4.00-5.30); RED CELL DISTRIBUTION WIDTH 14.3 % (11.6-17.2); WHITE BLOOD COUNT 8.7 TH/MM3 (4.0-11.0)
[2017-06-11 12:30] VITALS: BP 131/84; PULSE 84; RESP 16; TEMP 98.7; O2SAT 98
[2017-06-11 12:30] LABS: BICARBONATE 23.2 MEQ/L (21.0-32.0); POTASSIUM 3.4 MEQ/L (3.5-5.1)
[2017-06-11] MEDS ORDERED: POTASSIUM CHLORIDE 20 MEQ CONTROLLED RELEASE TAB PO ONE (13:45)
[2017-06-11] MEDS ORDERED: FOLI1TAB6 PO (13:46)
[2017-06-11] MEDS ORDERED: THERM PO (13:46)
--- NOTE | 2017-06-11 13:52 | HHI.DCPOC ---
Discharge Care Plan Diagnosis: (1) ALCOHOL DEPENDENCE WITH WITHDRAWAL, UNSPECIFIED (2) Alcohol abuse (3) History of gastrointestinal stromal tumor (GIST) (4) HTN (hypertension) (5) Asthma (6) Hyponatremia (7) Hypokalemia Goals to Promote Your Health Pt will need to followup with her PCP, Dr. Stevens in 1 week Pt will need to followup with [facility] in [place] in 1 week to help with counselling regarding her alcohol abuse. Directions to Meet Your Goals Take your medications as prescribed Follow your dietary instruction Follow activity as directed Keep your appointments as scheduled Take your immunizations and boosters as scheduled If your symptoms worsen call your PCP, if no PCP go to Urgent Care Center or Emergency Room Smoking is Dangerous to Your Health. Avoid second hand smoke Call the 24-hour hour crisis hotline for domestic abuse at Zayda Lay Jun 11, 2017 13:52
[2017-06-11 14:38] VITALS: RESP 18
== END 2017-06-11 15:02 | disposition home or self-care (01) ==
LOC: NEPE 18:44 → NEDA 06-10 00:52 → NEPGCP 06-10 01:52
PROVIDERS: ADMIT Hospitalist; ATTEND Hospitalist
DX: F10.239 Alcohol dependence with withdrawal, unspecified (principal); I10 Essential (primary) hypertension; E03.9 Hypothyroidism, unspecified; K21.9 Gastro-esophageal reflux disease without esophagitis; Z85.00 Personal history of malignant neoplasm of unspecified digestive organ; F41.0 Panic disorder [episodic paroxysmal anxiety]; E87.1 Hypo-osmolality and hyponatremia; E87.6 Hypokalemia; F41.9 Anxiety disorder, unspecified; J44.9 Chronic obstructive pulmonary disease, unspecified; R00.0 Tachycardia, unspecified; E78.00 Pure hypercholesterolemia, unspecified; F17.200 Nicotine dependence, unspecified, uncomplicated; H93.19 Tinnitus, unspecified ear; Z79.899 Other long term (current) drug therapy
CPT/HCPCS: 80048; 80053; 80162; 80307; 81001; 83690; 83735; 85025; 93005; 96361; 96365; 96366; 96375; 96376; 97162; 99285; G0378; G8987; G8988; J2060; J2405; J3411; J3480; J7030; Q0164